=== PATIENT | male | born 1990 | race Caucasian/White ===

== ENCOUNTER 2023-12-08 16:35 | Inpatient (IN) ==
[2023-12-08] MEDS ORDERED: LORazepam 2 MG/1 ML VIAL IV PRN ×2 (17:25→18:43)
[2023-12-08] MEDS ORDERED: Ativan IV Alcohol Withdrawal--Active Protocol IV PRN (17:25)
--- NOTE | 2023-12-08 17:34 | Emergency Department Note ---
Impression & Plan Alcohol intoxication, Alcohol withdrawal syndrome ED Provider Note NAME: CHERELLE FLORES AGE: 33 SEX: M : 1990 ARRIVES VIA: Walk-In INFORMANT: Patient, Friend at bedside, triage report ED PROVIDER(S): Neto Torres MD CHIEF COMPLAINT: Alcohol withdrawal/intoxication MEDICAL DECISION MAKING: Patient presents due to concern for alcohol rehab request. Given the patient's significant alcohol use do not believe the patient would be a good candidate for immediate placement in rehab. IV was established and blood work was obtained. Alcohol withdrawal protocol initiated and the patient was ordered IV Valium 10 mg as the patient was tachycardic and had mild tremulousness. Patient was also ordered IV fluids and a banana bag. Patient has a normal white count H&H and platelet count. The patient's kidney function is unremarkable. AST and ALT are unremarkable. Alcohol 471. Patient did have low oxygen saturations after the IV Valium to 8889% but did well on 2 L. Patient was reassessed and was up and ambulatory without issue. I did speak the on-call hospitalist Dr. Moreland and the patient was admitted to the medicine service. Critical Care: I have personally spent 40 minutes of critical care time in direct management of this patient. This includes bedside care, interpretation of diagnostic studies, and testing, discussion with consultants, patient, and family members, and other require inpatient management activities. This 40 minutes is in excess of all separately billable procedures. Discussion w/ other healthcare providers: None Prior /Outside records reviewed: None Differential diagnosis: Alcohol intoxication, toxicologic, infection, hypoglycemia, electrolyte abnormalities, cardiac sources, intracerebral event, neurologic, trauma, as well as other pathologies. Diagnostics, as interpreted by me: ECG: Sinus tachycardia, rate of 122, normal intervals, normal axis no ST elevations, T wave inversion in 3 and aVF. Cardiac monitoring: An order was placed for continuous cardiac monitoring. The monitor shows a rate of 135 with regular rhythm. Patient was placed on pulse oximetry Medical decision rules: None Imaging studies: I informally interpreted the patient's chest x-ray does not show obvious pneumonia or pneumothorax with formal report to follow. HPI: Patient presents due to concern for detox request. The patient states that he was presenting here today as he is wanting to go to detox for alcohol cessation. Patient denies any abdominal pain or nausea vomiting. The patient reports that he has been drinking very heavily the last 2 days he was that he was recently kicked out of his in-laws as he and his are visiting from the [facility]. Due to concerns for his persistent alcohol abuse he was no longer allowed to stay with his 's family. The patient has been in a hotel the last 2 nights. Prior to the more heavier drinking the patient reportedly was drinking anywhere from 4-6 bottles of wine each day for the last 3 months. Patient did get a DUI a year ago. PAST MEDICAL HISTORY: See Below PAST SURGICAL HISTORY: See Below SOCIAL HISTORY: See Below HOME MEDICATIONS: See Below ALLERGIES: See Below VITALS: See Below PHYSICAL EXAMINATION: GENERAL: NAD, non-toxic. EYE EXAM: Normal conjunctiva. PERRL, no anisocoria and EOM's grossly intact w/o pain. OROPHARYNX: Dry mucus membranes, grossly normal dentition. NECK: Trachea midline, no stridor. LUNGS: Clear to auscultation. Normal chest wall mechanics. HEART: Tachycardic and regular, no MRG. ABDOMEN: Abdomen soft, non-tender, no masses, no rebound or guarding. BACK: No CVA TTP. SKIN: No rashes and no bruising. UPPER EXTREMITIES: Upper extremities are grossly normal. Tremulousness. LOWER EXTREMITIES: Grossly normal, no edema. NEURO EXAM: Awake and alert, slightly slurred speech moves all 4 extremities. Past Med/Surg History Problem List (Updated 12/08/23 @ 23:44 by Neto Torres MD) Alcohol withdrawal syndrome (Acute) Anxiety and depression Alcohol intoxication (Acute) Alcohol dependence Social History Smoking Status: Current every day smoker Tobacco Type: E-cigarettes / Vaping Hx Alcohol Use: Yes Alcohol type: beer, wine, hard liquor and other Hx Substance Use: No Preferred Language: Singaporean Communication Ability: Effective Bell Staff Required: No Beliefs That Will Affect Care: None Current Living Situation: Homeless Current Living Situation Comment: kicked out of house 2 days ago Feels Safe at Home: Declines to Answer Assistive Devices: None Allergies Allergies Allergy/AdvReac Type Severity Reaction Status Date / Time No Known Allergies Allergy Mild Unverified 04/03/06 19:40 Home Meds Home Medications Medication Instructions Recorded Confirmed None (Patient States No Home Meds) ##0 06/10/09 Previous Rx's Medication Instructions Recorded Propoxyphene-N/Acetaminophen 1 tab PO Q4HR PRN ##20 06/10/09 (Darvocet-N 100 *) Results & Data (ED) Vital Signs Vital Signs - 24 hr 12/08/23 16:50 12/08/23 17:22 12/08/23 17:31 Temperature 36.5 C 36.8 C Temperature Source Temporal Artery Scan Oral Pulse Rate 131 H 118 H Pulse Rate [Left Apical] 120 H Respiratory Rate 20 22 Respiratory Effort / Characteristics Non-Labored Spontaneous Non-Labored Spontaneous Respiratory Depth Normal Normal Respiratory Pattern Regular Blood Pressure 163/115 H Blood Pressure [Right Arm] 155/111 H Blood Pressure Mean 131 Blood Pressure Mean [Right Arm] 125 Pulse Oximetry 98 94 Oxygen Delivery Method Room Air Oxygen Flow Rate Sepsis Recent Fever Within 48 Hours No Sepsis New/Unexplained Change in Mental Status No Sepsis Action Taken by Nursing No Action Required Oxygen Flow Rate - Titration Pulse Oximetry Post Tiitration 12/08/23 17:39 12/08/23 17:50 12/08/23 17:51 Temperature Temperature Source Pulse Rate 119 H 120 H Pulse Rate [Left Apical] Respiratory Rate 14 23 Respiratory Effort / Characteristics Respiratory Depth Respiratory Pattern Blood Pressure Blood Pressure [Right Arm] Blood Pressure Mean Blood Pressure Mean [Right Arm] Pulse Oximetry 92 87 L 98 Oxygen Delivery Method Room Air Nasal Cannula Nasal Cannula Oxygen Flow Rate 0 2 Sepsis Recent Fever Within 48 Hours Sepsis New/Unexplained Change in Mental Status Sepsis Action Taken by Nursing Oxygen Flow Rate - Titration 2 Pulse Oximetry Post Tiitration 98 12/08/23 17:57 12/08/23 18:00 12/08/23 18:09 Temperature Temperature Source Pulse Rate 120 H 122 H Pulse Rate [Left Apical] Respiratory Rate 24 16 Respiratory Effort / Characteristics Respiratory Depth Respiratory Pattern Blood Pressure 145/110 H Blood Pressure [Right Arm] Blood Pressure Mean 124 Blood Pressure Mean [Right Arm] Pulse Oximetry 98 98 Oxygen Delivery Method Nasal Cannula Nasal Cannula Oxygen Flow Rate 2 2 Sepsis Recent Fever Within 48 Hours Sepsis New/Unexplained Change in Mental Status Sepsis Action Taken by Nursing Oxygen Flow Rate - Titration Pulse Oximetry Post Tiitration 12/08/23 18:27 12/08/23 18:30 12/08/23 18:54 Temperature Temperature Source Pulse Rate 120 H 125 H Pulse Rate [Left Apical] Respiratory Rate 23 14 Respiratory Effort / Characteristics Respiratory Depth Respiratory Pattern Blood Pressure 147/92 H Blood Pressure [Right Arm] Blood Pressure Mean 112 Blood Pressure Mean [Right Arm] Pulse Oximetry Oxygen Delivery Method Oxygen Flow Rate Sepsis Recent Fever Within 48 Hours Sepsis New/Unexplained Change in Mental Status Sepsis Action Taken by Nursing Oxygen Flow Rate - Titration Pulse Oximetry Post Tiitration Home Medications Current Medication List: was personally reviewed by me Laboratory Data Attestation: I reviewed the patient's lab results. 12/08/23 17:05 12/08/23 17:05 Lab Results 12/08/23 Range/Units 17:05 WBC 7.22 (4.8-10.8) K/ul RBC 5.13 (4.70-6.10) M/uL Hgb 16.6 (14.0-18.0) g/dl Hct 47.1 (42.0-52.0) % MCV 91.8 (80.0-100.0) fL MCH 32.4 (25.0-34.0) pg MCHC 35.2 (32.0-36.0) g/dL RDW Std Deviation 43.6 (36.4-46.3) fL RDW Coeff of Yonis 13.0 (11.5-14.5) % Plt Count 271 (130-400) K/uL MPV 8.3 L (9.4-12.4) fL Immature Gran % (Auto) 0.3 % Neut % (Auto) 57.1 % Lymph % (Auto) 34.1 % [place] % (Auto) 7.5 % Eos % (Auto) 0.3 % Baso % (Auto) 0.7 % Neut # (Auto) 4.13 (1.40-6.50) K/uL Lymph # (Auto) 2.46 (1.20-3.40) K/uL [place] # (Auto) 0.54 (0.11-0.59) K/uL Eos # (Auto) 0.02 (0.00-0.50) K/uL Baso # (Auto) 0.05 (0.00-0.20) K/uL Immature Gran # (Auto) 0.02 (0.01-0.20) K/uL Sodium 143 (136-145) mmol/L Potassium 3.9 (3.5-5.1) mmol/L Chloride 100 (98-107) mmol/L Carbon Dioxide 25 (21-32) mmol/L Anion Gap 18 H (3-11) BUN 10 (6-23) mg/dl Creatinine 0.95 (0.6-1.4) mg/dl Est Cr Clr Drug Dosing 120.5 ml/min Est GFR ( Amer) 121.4 ml/min Est GFR (Non-Af Amer) 104.8 ml/min BUN/Creatinine Ratio 10.5 (10-20) Glucose 126 H (70-99(Fasting)) mg/dl Calcium 9.5 (8.6-10.3) mg/dl Total Bilirubin 0.4 (0.2-1.0) mg/dl Direct Bilirubin 0.1 (0-0.2) mg/dl AST 103 H (13-39) U/L ALT 75 H (7-52) U/L Alkaline Phosphatase 79 (34-104) U/L Total Protein 8.6 H (6.0-8.3) gm/dl Albumin 5.3 H (3.4-5.0) gm/dl Ethyl Alcohol mg/dL 471.9 H (<10.0) mg/dl Administered Medications Chlordiazepoxide HCl (Chlordiazepoxide Hcl 25 Mg Cap) 50 mg PO Q6H MARIYA Stop: 12/09/23 11:31 Last Admin: 12/08/23 22:53 Dose: 50 mg Documented By: Admin: 12/08/23 17:38 Dose: 50 mg Documented By: MARGI Clonidine HCl (Clonidine Hcl 0.1 Mg Tab) 0.1 mg PO BID MARIYA Stop: 01/07/24 20:59 Last Admin: 12/08/23 21:28 Dose: Not Given Documented By: SADIQ Lactated Ringer's (Lr) 1,000 mls @ 125 mls/hr IV .Q8H MARIYA Stop: 01/07/24 18:44 Last Admin: 12/08/23 20:03 Dose: 125 mls/hr Documented By: MARGI Lorazepam (Lorazepam 2 Mg/1 Ml Vial) 2 mg IV UD PRN; Protocol PRN Reason: EtOH Withdrawal AWSS Score 8,9 Stop: 01/07/24 17:24 Last Admin: 12/08/23 22:55 Dose: 2 mg Documented By: Admin: 12/08/23 21:25 Dose: 2 mg Documented By: SADIQ Discontinued Medications Chlordiazepoxide HCl (Chlordiazepoxide Alcohol Withdrawl 50mg) 1 each PO NOW STA; Protocol Stop: 12/08/23 17:26 Last Admin: 12/08/23 18:37 Dose: Not Given Documented By: MARGI Clonidine HCl (Clonidine Hcl 0.1 Mg Tab) 0.1 mg PO NOW ONE Stop: 12/08/23 18:43 Last Admin: 12/08/23 20:34 Dose: 0.1 mg Documented By: MARGI Diazepam (Diazepam 5 Mg/Ml 10ml Vial) 10 mg IV NOW STA Stop: 12/08/23 17:26 Last Admin: 12/08/23 17:37 Dose: 10 mg Documented By: MARGI Multivitamins 10 ml/ Thiamine HCl 100 mg/ Folic Acid 1 mg/Sodium Chloride 1,011.2 mls @ 500 mls/hr IV .Q2H2M ONE Stop: 12/08/23 19:26 Last Infusion: 12/08/23 21:27 Dose: Infused Documented By: Admin: 12/08/23 19:23 Dose: 500 mls/hr Documented By: MARGI Sodium Chloride (Nss) 1,000 mls @ 999 mls/hr IV .Q1H1M ONE Stop: 12/08/23 18:25 Last Infusion: 12/08/23 19:15 Dose: Infused Documented By: Admin: 12/08/23 17:44 Dose: 999 mls/hr Documented By: MARGI Lactated Ringer's (Lr) 500 mls @ 999 mls/hr IV .Q31M ONE Stop: 12/08/23 19:12 Last Infusion: 12/08/23 21:27 Dose: Infused Documented By: Admin: 12/08/23 19:23 Dose: 999 mls/hr Documented By: MARGI Thiamine HCl 300 mg/ Sodium (Chloride) 53 mls @ 210 mls/hr IV ONE ONE Stop: 12/08/23 19:15 Last Infusion: 12/08/23 21:27 Dose: Infused Documented By: Admin: 12/08/23 19:23 Dose: 210 mls/hr Documented By: MARGI Imaging Data Radiologist's Impression: Chest X-Ray 12/08/23 16:54 XR chest 1V portable CLINICAL HISTORY: detox COMPARISON STUDY: No previous studies for comparison. FINDINGS: Lung volumes are normal. Lungs are clear. There is no pneumothorax or pleural effusion. Cardiac size is normal. Mediastinal contours are normal. There is no evidence for pulmonary edema. IMPRESSION: No acute cardiopulmonary findings. ACT 112: Negative or not required by law. Electronically signed by: Giuseppe Marquez M.D. 12/08/2023 5:34 PM Discharge Plan Visit Data Chief Complaint: Detox Request Stated Complaint: ALC INTOX, GOES THROUGH WITHDRAWL, DETOX REQ ED Provider: Neto Torres Discharge Problem: Alcohol intoxication, Alcohol withdrawal syndrome Patient Disposition: Admitted As Inpatient Discharge Instructions Interventions: ED Discharge Assessment Last Done: 12/08/23 20:53 Discharge Problem: Alcohol intoxication Qualifiers: Complication of substance-induced condition: uncomplicated Qualified Code(s): F 10.920 - Alcohol use, unspecified with intoxication, uncomplicated Alcohol withdrawal syndrome Qualifiers: Complication of substance-induced condition: uncomplicated Qualified Code(s): F 10.930 - Alcohol use, unspecified with withdrawal, uncomplicated
[2023-12-08] MEDS: diazePAM 5 MG/ML 10ML VIAL IV STA (17:37)
[2023-12-08] MEDS: chlordiazePOXIDE HCl 25 MG CAP PO SCH (17:38)
[2023-12-08 17:39] LABS: Basophils # (auto) 0.05 K/uL (0.00-0.20); Basophils % (auto) 0.7 %; Eosinophils # (auto) 0.02 K/uL (0.00-0.50); Eosinophils % (auto) 0.3 %; Hematocrit (blood only) 47.1 % (42.0-52.0); Hemoglobin 16.6 g/dl (14.0-18.0); Immature Granulocytes # (auto) 0.02 K/uL (0.01-0.20); Immature Granulocytes % (auto) 0.3 %; Lymphocytes # (auto) 2.46 K/uL (1.20-3.40); Lymphocytes % (auto) 34.1 %; Mean Corpuscular Hemoglobin 32.4 pg (25.0-34.0); Mean Corpuscular Hgb Conc 35.2 g/dL (32.0-36.0); Mean Corpuscular Volume 91.8 fL (80.0-100.0); Mean Platelet Volume 8.3 fL (9.4-12.4); Monocytes # (auto) 0.54 K/uL (0.11-0.59); Monocytes % (auto) 7.5 %; Neutrophils # (auto) 4.13 K/uL (1.40-6.50); Neutrophils % (auto) 57.1 %; Platelet Count 271 K/uL (130-400); RDW Standard Deviation 43.6 fL (36.4-46.3); Red Blood Count 5.13 M/uL (4.70-6.10); White Blood Count 7.22 K/ul (4.8-10.8)
[2023-12-08] MEDS: SODIUM CHLORIDE 0.9% 1,000 ML IV ONE (17:44)
[2023-12-08 18:01] LABS: Albumin Level 5.3 gm/dl (3.4-5.0); BUN Creatinine Ratio 10.5 (10-20); Bilirubin Direct 0.1 mg/dl (0-0.2); Bilirubin,Total 0.4 mg/dl (0.2-1.0); Calcium 9.5 mg/dl (8.6-10.3); Creatinine Clr Calc Pharmacy 120.5 ml/min; Est GFR (African American) 121.4 ml/min; Est GFR (Non-African American) 104.8 ml/min; Potassium 3.9 mmol/L (3.5-5.1); Total Protein 8.6 gm/dl (6.0-8.3)
--- NOTE | 2023-12-08 18:23 | History & Physical Report ---
Date of Service December 08, 2023 Assessment & Plan (1) Alcohol dependence: Plan: Acute alcohol dependence, withdrawal risk Patient seen in the ER with alcohol level of 471.9. Tremulous, tachycardic and recommended for admission for high risk alcohol withdrawal Patient is very tearful on exam, anxious, and notes that he has been kicked out of his home by his . Does want to go back to rehab. He is volume contracted on exam with dry mucous membranes Do not feel that he is in acute withdrawal at this time with an alcohol level of 471.9 and last drink at noon 12/07. Does appear with acute alcohol intoxication, volume contraction, tremulousness. Patient was given 10 mg of Valium started on DARIA S protocol with Librium prior to admission. On admitting assessment patient reports Librium taper has worked well for patient in the past. Will continue this Patient reports he was last sober for 3 days last week when he was trying to self taper his alcohol use for his but was unsuccessful in doing so. He did feel tremulous and anxious at that time. Reports that he may have had a seizure in September but is never had a diagnosed seizure and no seizure that was ever treated Will admit to medical telemetry on seizure precautions with ativan PRN for seizure Psychiatry consulted. Patient acknowledges underlying anxiety/depression which lead him to drink and while he has not been on any medications in several months would like to meet with a psychiatrist to review this S/p banana bag. Thiamine ordered. Folic acid and thiamine continued Continue IV FM. Mild transaminitis suspect acute alcoholic hepatitis. Trended. If uptrend ing, obtain right upper quadrant ultrasound. No right upper quadrant tenderness on exam. Denies history of recreational drug use/IV drug use Takes clonidine 0.2 mg at bedtime for cravings. Likely with some clonidine withdrawal and at risk of rebound hypertension. This is continued at 0.1 mg twice daily (2) Alcohol intoxication: (3) Anxiety and depression: Plan: no longer takes any medications other than clonidine in the evening to help with alcohol cravings Patient would like to talk to someone about underlying anxietydepression with his alcohol use. Would like to review options with psychiatry during admission, consulted Reports multiple stressors including his leaving him at home. Reports he is not spiritual, but would consider meeting a trust manager assistant and would like to think about this and will decide in the morning. May reduce in the morning and consult drugless doctor if desired by patient Plan Prophylaxis: Low risk, SCDs Disposition: Medical/telemetry CODE STATUS: Full code Diet: Clears. May advance to regular if awake and alert. History of Present Illness Primary Care Provider: NO PCP Inderjit is a 33-year-old male with a history of alcohol dependence and abuse. He presented to the ER tremulous and tachycardic with an alcohol level of 471.9. Patient has been drinking around 6 bottles of wine daily recently, and had been drinking around 4 bottles of wine a day for several months prior to presentation to the ER. Presents with a detox request and would like to proceed to rehab. He does have a transaminitis of 103/75 on admission. Patient was given 10 mg of Valium, banana bag, 1 L NSS, and started on Clure diazepam oxide and AWSS protocol prior to admission. Due to severe tremulousness, tachycardia, poor clinical appearance with high risk for alcohol withdrawal was recommended for admission and treatment of alcohol dependence prior to progression to rehab. "IM an alcoholic, I drink too much and I can't stop" Drinking daily for ~10 years. Drinks ~20 drinks ago. Mixture of a fifth of liquor, bottles of wine, and beer. Up to 4 bottles of wine normally , an da little more lately Last week Friday --> attempted to detox himself. Relapsed. Is on clonidine 0.2 HS I sno longer on seroquel, wellbutrin, or trazodone. Has not taken in many months. Reports he has a past history of alcohol withdrawal seizures, but did not see a doctor for this. Thinks he may have had a seizure last in September but isn't sure, remembers waking up with a locked jaw and felt terrible but has never been diagnosed with a seizure. First rehab 2021 in [place], 2022 also went to rehab in [place] [facility], and went through [facility] and then back to rehab this past late 2022 in [place] and was there for a few months. Primary doctor is Dr. Casanova with [facility]. Denies medical problems other than ETOH abuse. Had a cyst excision from his scalp removed, otherwise denies surgeries. Has done well with libruim for withdrawal in the past Last drink of alcohol was noon today. No heart problems. Medical History: Reviewed Medications: Reviewed Surgical History: Reviewed Family history: Reviewed Allergies: Reviewed. NKMA. Social History: Vapes nicotine. Would like patch. No recreational drug use Code Status: Full Code. Surrogate decision maker would be his mother [phone] Mavis. Allergies Allergy/AdvReac Type Severity Reaction Status Date / Time No Known Allergies Allergy Mild Unverified 04/03/06 19:40 Home Medications Medication Instructions Recorded Confirmed Type None (Patient States No Home Meds) ##0 06/10/09 History Propoxyphene-N/Acetaminophen 1 tab PO Q4HR PRN ##20 06/10/09 Rx (Darvocet-N 100 *) Past Med/Surg History Problem List (Updated 12/08/23 @ 18:48 by Param Moreland MD) Anxiety and depression Alcohol intoxication Alcohol dependence Social History Smoking Status: Unknown if ever smoked Feels Safe at Home: Yes Physical Exam Physical Exam: General: Tearful, tremulous, tachycardic, skin warm and moist HEENT: Atraumatic, normocephalic. Pupils equally reactive to light and accommodation Pulm: CTAB A&P. -wheezes, -rales, -rhonchi. Symmetrical chest rise. No increased work of breathing. No respiratory distress. Cardiac: Regular, tachycardic. No murmurs rubs or gallop. Radial pulses intact and symmetrical. Abdominal: Nontender, nondistended, soft. BS present. Extremities: Bilateral upper extremity tremor during exam. Field Administrative Assistant strength, elbow flexion, ankle dorsiflexion/plantarflexion 5/5 without asymmetry. Sensation to soft touch intact in hands and feet Results & Data Results & Data Vital Signs (Past 12 Hours) Vital Signs Temp Pulse Pulse Resp BP BP Pulse Ox 12/08/23 17:51 120 H 23 98 12/08/23 17:50 87 L 12/08/23 17:39 119 H 14 92 12/08/23 17:31 118 H 12/08/23 17:22 36.8 C 120 H 22 155/111 H 94 12/08/23 16:50 36.5 C 131 H 20 163/115 H 98 O2 Del Method O2 Flow Rate 12/08/23 17:51 Nasal Cannula 2 12/08/23 17:50 Nasal Cannula 0 09/30/24 17:39 Room Air 12/08/23 17:31 12/08/23 17:22 Room Air 12/08/23 16:50 PG Care Time/CCT Total # of Minutes Spent Total Time Spent with Patient: Total time spent is greater than 50% in coordination of care (as documented) at patient's floor/unit and/or counseling patient: Coding Level of Care Code 13332 INT INP/OBS CARE 3/75MIN Diagnoses Alcohol dependence F10.20 Alcohol intoxication F10.929 Anxiety and depression F41.9; F32.A
[2023-12-08] MEDS: chlordiazePOXIDE ALCOHOL WITHDRAWL 50MG PO STA (18:37)
[2023-12-08] MEDS: THIAMINE HCL 300 MG in SODIUM CHLORIDE 0.9% 50 ML IV ONE (19:23)
[2023-12-08] MEDS: MULTI-VITAMIN INFUSION 10 ML, THIAMINE HCL 100 MG, FOLIC ACID 1 MG in SODIUM CHLORIDE 0... IV ONE (19:23)
[2023-12-08] MEDS: LACTATED RINGER'S 500 ML IV ONE (19:23)
[2023-12-08] MEDS: LACTATED RINGER'S 1,000 ML IV SCH (20:03)
[2023-12-08] MEDS: cloNIDine HCL 0.1 MG TAB PO ONE (20:34)
[2023-12-08] MEDS: LORazepam 2 MG/1 ML VIAL IV PRN (21:25)
[2023-12-08] MEDS: cloNIDine HCL 0.1 MG TAB PO SCH (21:28)
[2023-12-09 06:56] LABS: Albumin Globulin Ratio 1.7 (0.9-2); Albumin Level 3.7 gm/dl (3.4-5.0); BUN Creatinine Ratio 12.7 (10-20); Bilirubin,Total 0.5 mg/dl (0.2-1.0); Calcium 8.2 mg/dl (8.6-10.3); Est GFR (African American) 136.7 ml/min; Globulin 2.2 gm/dl (2.5-4.0); Potassium 3.6 mmol/L (3.5-5.1); Total Protein 5.9 gm/dl (6.0-8.3)
[2023-12-09 06:58] LABS: Basophils # (auto) 0.03 K/uL (0.00-0.20); Basophils % (auto) 0.8 %; Eosinophils # (auto) 0.07 K/uL (0.00-0.50); Eosinophils % (auto) 1.9 %; Hematocrit (blood only) 35.6 % (42.0-52.0); Hemoglobin 12.4 g/dl (14.0-18.0); Immature Granulocytes # (auto) 0.01 K/uL (0.01-0.20); Immature Granulocytes % (auto) 0.3 %; Lymphocytes % (auto) 40.5 %; Mean Corpuscular Hemoglobin 32.1 pg (25.0-34.0); Mean Corpuscular Hgb Conc 34.8 g/dL (32.0-36.0); Mean Corpuscular Volume 92.2 fL (80.0-100.0); Mean Platelet Volume 8.4 fL (9.4-12.4); Monocytes # (auto) 0.66 K/uL (0.11-0.59); Monocytes % (auto) 17.8 %; Neutrophils # (auto) 1.43 K/uL (1.40-6.50); Neutrophils % (auto) 38.7 %; Platelet Count 143 K/uL (130-400); RDW Coefficient of Variation 12.8 % (11.5-14.5); RDW Standard Deviation 43.1 fL (36.4-46.3); Red Blood Count 3.86 M/uL (4.70-6.10)
[2023-12-09] MEDS: POTASSIUM CHLORIDE CRTAB 20 MEQ TABCR PO SCH (10:17)
[2023-12-09] MEDS: THIAMINE HCL 100 MG TAB PO SCH (10:18)
[2023-12-09] MEDS: FOLIC ACID 1 MG TAB PO SCH (10:18)
[2023-12-09] MEDS: CEROVITE ADV FORMULA TAB PO SCH (10:18)
--- NOTE | 2023-12-09 10:47 | Hospitalist Progress Note ---
Date of Service December 09, 2023 Assessment & Plan (1) Alcohol dependence with withdrawal: (2) Abnormal liver enzymes: Plan Alcohol level is 471.9 on admission Continue Librium and taper starting tomorrow [facility] alcohol withdrawal protocol with Ativan as needed Thiamine plus folic acid plus multivitamin Case management consult: Patient is interested in inpatient alcohol rehab Psychiatry consult: Awaiting psychiatry consult and recommendations LFTs are slowly improving Monitor LFTs Check ultrasound abdomen to assess for any liver cirrhosis Alcohol cessation counseling provided Care plan discussed with patient, nursing staff Admission and Anticipated Discharge Date Admission Date: December 08, 2023 Subjective Patient seen and examined H&P reviewed Labs reviewed Radiology reviewed Patient states he feels very weak and tired Denies any nausea, vomiting, diarrhea, abdominal pain He is tearful about the situation He admits to drinking 2-3 bottles of wine every day. Patient states he tried to stop drinking few days ago and started feeling withdrawal symptoms and went back to drinking alcohol again. His has asked him to leave home He denies tobacco use or any illegal or IV drug use Review of Systems Review of Systems: As per HPI Physical Exam Physical Exam: General: No acute distress Psych: Awake and alert, oriented to place person and time HEENT: Anicteric sclera, moist oral mucosa, no tongue fasciculations noted CVS: Regular rate and rhythm Lungs: Bilateral air entry, no wheezing noted Abdomen: Soft, nontender, no rebound, no guarding Ext: No lower extremity edema, no calf tenderness Neuro: No focal motor deficits noted Results & Data Results & Data Vital Signs (Past 12 Hours) Vital Signs Temp Pulse Resp BP Pulse Ox O2 Del Method 12/09/23 08:10 37.4 C 94 H 20 149/74 H 95 Room Air 12/09/23 03:55 36.5 C 89 16 127/70 95 Room Air 12/08/23 23:10 36.4 C L 114 H 20 138/81 95 Room Air Laboratory Results Laboratory Results - last 24 hr 12/08/23 12/09/23 17:05 05:55 WBC 7.22 3.70 L RBC 5.13 3.86 L Hgb 16.6 12.4 L D Hct 47.1 35.6 L MCV 91.8 92.2 MCH 32.4 32.1 MCHC 35.2 34.8 RDW Std Deviation 43.6 43.1 RDW Coeff of Yonis 13.0 12.8 Plt Count 271 143 MPV 8.3 L 8.4 L Immature Gran % (Auto) 0.3 0.3 Neut % (Auto) 57.1 38.7 Lymph % (Auto) 34.1 40.5 [place] % (Auto) 7.5 17.8 Eos % (Auto) 0.3 1.9 Baso % (Auto) 0.7 0.8 Neut # (Auto) 4.13 1.43 Lymph # (Auto) 2.46 1.50 [place] # (Auto) 0.54 0.66 H Eos # (Auto) 0.02 0.07 Baso # (Auto) 0.05 0.03 Immature Gran # (Auto) 0.02 0.01 Sodium 143 142 Potassium 3.9 3.6 Chloride 100 106 Carbon Dioxide 25 27 Anion Gap 18 H 9 BUN 10 10 Creatinine 0.95 0.79 Est Cr Clr Drug Dosing 120.5 146.0 Est GFR ( Amer) 121.4 136.7 Est GFR (Non-Af Amer) 104.8 118.0 BUN/Creatinine Ratio 10.5 12.7 Glucose 126 H 108 H Calcium 9.5 8.2 L Total Bilirubin 0.4 0.5 Direct Bilirubin 0.1 AST 103 H 75 H ALT 75 H 52 Alkaline Phosphatase 79 55 Total Protein 8.6 H 5.9 L D Albumin 5.3 H 3.7 Globulin 2.2 L Albumin/Globulin Ratio 1.7 Ethyl Alcohol mg/dL 471.9 H Diagnostic Findings Chest X-Ray 12/08/23 16:54 XR chest 1V portable CLINICAL HISTORY: detox COMPARISON STUDY: No previous studies for comparison. FINDINGS: Lung volumes are normal. Lungs are clear. There is no pneumothorax or pleural effusion. Cardiac size is normal. Mediastinal contours are normal. There is no evidence for pulmonary edema. IMPRESSION: No acute cardiopulmonary findings. ACT 112: Negative or not required by law. Electronically signed by: Giuseppe Marquez M.D. 12/08/2023 5:34 PM PG Care Time/CCT Total # of Minutes Spent Total Time Spent with Patient: Total time spent is greater than 50% in coordination of care (as documented) at patient's floor/unit and/or counseling patient: Coding Level of Care Code 58806 SUB INP/OBS CARE 2/35MIN Diagnoses Alcohol dependence with withdrawal F10.239 Abnormal liver enzymes R74.8
--- NOTE | 2023-12-09 10:51 | Electrocardiogram Report ---
Test Reason : Blood Pressure : */* mmHG Vent. Rate : 122 BPM Atrial Rate : 122 BPM P-R Int : 136 ms QRS Dur : 90 ms QT Int : 326 ms P-R-T Axes : -26 -10 -37 degrees QTcB Int : 464 ms Sinus tachycardia Nonspecific T wave abnormality Abnormal ECG No previous ECGs available Confirmed by Adam Ferguson ([id number]) on 12/09/2023 10:51:27 AM Referred By: REFERRED SELF Confirmed By: Adam Ferguson
--- NOTE | 2023-12-09 13:07 | Psychiatric Consultation ---
Date of Consultation December 09, 2023 Impression / Recommendations Impression Inderjit is a 33 yo with a history of depression, anxiety and alcohol use admitted medically. Diagnostically consistent with alcohol use disorder as well as unspecified depression anxiety likely a combination of substance-induced as well as MDD vs adjustment disorder with depressed mood and CHAPIN and social anxiety. Acute risk of self-harm is low given denial of SI, no longer with intoxication, motivated to avoid future substance use, future-oriented. Chronic risk of self-harm and harm to others is slightly increased due to substance use with substance use treatment being the most significant modifiable risk factor to reduce acute and chronic risk. Recommendation is for residential substance use treatment. Liver enzymes reviewed and stable for treatment with naltrexone and no concurrent opioids. Overall, I spent a total of 60 minutes with this case including review of chart records, review of labwork, review of EKG QTc, direct evaluation of the patient at bedside, counseling the patient, discussion of the patient with the Nurse and with the hospitalist provider, discussion with the psychiatric liason during clinical rounds and documentation in the electronic health record. (1) Alcohol use disorder: (2) Depression: (3) Anxiety: Plan -Patient is not an imminent danger to self or others and does not meet criteria for involuntary psychiatric commitment if he asked to leave AMA -Continue AWSS as well as thiamine and folic acid -Consider gabapentin 300mg HS for alcohol withdrawal, and off-label to help with sleep and anxiety (can titrate further to 600mg HS over coming days if needed); alternatively if ineffective could consider use of trazodone 50mg HS (can titrate up to 100mg HS as needed for insomnia) -Would start naltrexone 50mg daily with dinner for alcohol use disorder -Would avoid SSRI/SNRI given his report of prior significant side effects from escitalopram (? induced episode of natty vs psychosis). Could consider use of Wellbutrin after he is outside of acute withdrawal period (contraindicated now as this lowers the seizure threshold) as he reports this was helpful in the past and did not worsen anxiety. -CM to work on residential substance use treatment referrals -Psych liasons to offer support and can help connect with outpatient psychiatric/substance use resources if he ends up deciding not to attend residential substance use treatment Psych History Identifying Data 33 yo man with a history of anxiety, depression, alcohol use, past GI bleed d/t alcohol use, admitted medically for alcohol withdrawal. Psychiatry consulted for anxiety, depression, substance use recommendations. Chief Complaint "I have so much anxiety". History of Present Illness Inderjit was admitted for alcohol withdrawal after relapsing at a constitution party with his longtime girlfriend and her family. He states his girlfriend kicked him out the family's home and he walked to the hospital. He reports sadness and anxiety due to his girlfriend breaking up with him because of his frequent relapses and alcohol use. States he had been drinking 14-18 drinks per day but over the last week was attempting to stop and was withdrawing when he starting drinking again on . Today reports ongoing anxiety and depression. He denies any suicidal ideation. He feels his current emotional state is affected by the breakup as they had been together for the last 14 years. He feels depressed and has low self-esteem, which he believes contributes to his drinking. He expresses feeling conflicted about the relationship ending, stating that he still loves his ex-girlfriend despite recognizing the unhealthy dynamics. He describes feeling frustrated and upset about the circumstances of their breakup, including being kicked out and having to walk in the rain. 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 Feels that some of his drinking may have also been due to his girlfriend's infidelity at times. He has a history of depression and anxiety and has previously been on Lexapro, which he reports made him feel like a "zombie" and that after stopping it at a previous residential facility caused him to have a "psychotic break". He recalls Wellbutrin was the only psychiatric medication that he ever found helpful. History of being on Adderall in the past.Denies any prior suicide attempts. No prior psych hospitalizations. Has been to residential tx 3 times for alcohol use. History of substance use IOP. History of outpatient therapy. Longest period of sobriety was 5 months. Has been drinking heavily since 21. History of DUI. History of medical issues including GI bleed from alcohol use. Has been prescribed naltrexone but never took it due to concerns it could cause nausea. He is willing to undergo treatment and is considering residential treatment or outpatient treatment in [place] where his parents live. Rates his motivation to stop drinking as 9/10 and that he feels very confident he can stop drinking if he commits to this. 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 Operator Required: No Beliefs That Will Affect Care: None Current Living Situation: Homeless Current Living Situation Comment: kicked out of house 2 days ago Feels Safe at Home: Declines to Answer Assistive Devices: None Physical Exam Psychiatric: Orientation: alert and oriented x 3 Apperance: appropriately dressed and appropriately groomed Eye Contact: good eye contact Motor Behavior: no abnormal motor movements Speech: normal rate/rhythm/volume of speech Affect: + anxious affect and + tearful affect Mood: + depressed mood and + anxious mood Thought Process: goal directed thought process Thought Content: reality based without delusions Suicidal Thoughts: denies suicidal thoughts Homicidal Thoughts: denies homicidal thoughts Hallucinations: no auditory hallucinations and no visual hallucinations Cognition: attention grossly intact and language grossly intact Estimated Intelligence: consistent with education level Insight: + fair insight Judgment: + limited judgement Vital Signs (Past 24 Hours): Last Vital Signs Temp 36.9 C 12/09/23 11:11 Pulse 75 12/09/23 11:11 Resp 18 12/09/23 11:11 BP 143/91 H 12/09/23 11:11 Pulse Ox 95 12/09/23 11:11 O2 Del Method Room Air 12/09/23 11:11 O2 Flow Rate 2 12/08/23 18:09 Results & Data (PSY) Medications Administered Clonidine HCl (Clonidine Hcl 0.1 Mg Tab) 0.1 mg PO BID MARIYA Stop: 01/07/24 20:59 Last Admin: 12/09/23 10:17 Dose: 0.1 mg Documented By: Admin: 12/08/23 21:28 Dose: Not Given Documented By: SADIQ Folic Acid (Folic Acid 1 Mg Tab) 1 mg PO QAM COUNTS INCLUDE 234 BEDS AT THE [facility] Stop: 01/08/24 08:59 Last Admin: 12/09/23 10:18 Dose: 1 mg Documented By: MELITON Lactated Ringer's (Lr) 1,000 mls @ 125 mls/hr IV .Q8H MARIYA Stop: 01/07/24 18:44 Last Admin: 12/09/23 07:57 Dose: 125 mls/hr Documented By: Infusion: 12/09/23 07:48 Dose: Infused Documented By: Admin: 12/08/23 23:48 Dose: 125 mls/hr Documented By: Infusion: 12/08/23 23:48 Dose: Infused Documented By: Admin: 12/08/23 20:03 Dose: 125 mls/hr Documented By: [facility] Lorazepam (Lorazepam 2 Mg/1 Ml Vial) 2 mg IV UD PRN; Protocol PRN Reason: EtOH Withdrawal AWSS Score 8,9 Stop: 01/07/24 17:24 Last Admin: 12/09/23 08:15 Dose: 2 mg Documented By: Admin: 12/08/23 22:55 Dose: 2 mg Documented By: Admin: 12/08/23 21:25 Dose: 2 mg Documented By: SADIQ Multivitamins/Minerals (Cerovite Adv Formula Tab) 1 tab PO QAM COUNTS INCLUDE 234 BEDS AT THE [facility] Stop: 01/08/24 08:59 Last Admin: 12/09/23 10:18 Dose: 1 tab Documented By: MELITON Potassium Chloride (Potassium Chloride Crtab 20 Meq Tabcr) 20 meq PO BID MARIYA Stop: 12/09/23 21:01 Last Admin: 12/09/23 10:17 Dose: 20 meq Documented By: MELITON Thiamine HCl (Thiamine Hcl 100 Mg Tab) 100 mg PO QAM COUNTS INCLUDE 234 BEDS AT THE [facility] Stop: 01/08/24 08:59 Last Admin: 12/09/23 10:18 Dose: 100 mg Documented By: MELITON Coding Level of Care Code 73695 IN/OBS CONSULT LVL 4,60M Diagnoses Alcohol use disorder F10.90 Depression F32.A Anxiety F41.9
[2023-12-09] MEDS: NALTREXONE HCL 50 MG TAB PO SCH (17:42)
[2023-12-09] MEDS ORDERED: chlordiazePOXIDE HCl 25 MG CAP PO SCH (19:30)
[2023-12-09] MEDS: GABAPENTIN 300 MG CAP PO SCH (20:03)
[2023-12-09] MEDS: chlordiazePOXIDE HCl 25 MG CAP PO SCH (20:04)
[2023-12-09] MEDS: IBUPROFEN 200 MG/10 ML UDC PO STA (20:26)
--- NOTE | 2023-12-10 05:33 | Ultrasound Report ---
Exam(s): US LIVER EXAM: US Abdomen Limited CLINICAL HISTORY: Abnormal liver enzymes. TECHNIQUE: Real-time ultrasound of the abdomen with image documentation. COMPARISON: No relevant prior studies available. FINDINGS: Liver: The liver measures 19.7 cm. There is increased echogenicity of the liver. No mass. Common bile duct: The common bile duct is normal measuring 0.6 cm. Pancreas: The pancreatic head and body are within normal limits. The tail is not visualized due to overlying bowel gas. Kidneys: The right kidney is unremarkable as visualized. IMPRESSION: Hepatomegaly with fatty infiltration of the liver. Electronically signed by: Yris Root MD 12/10/23 05:32 AM
[2023-12-10 06:18] LABS: Basophils # (auto) 0.02 K/uL (0.00-0.20); Basophils % (auto) 0.5 %; Eosinophils % (auto) 2.6 %; Hematocrit (blood only) 36.3 % (42.0-52.0); Hemoglobin 12.8 g/dl (14.0-18.0); Immature Granulocytes # (auto) 0.01 K/uL (0.01-0.20); Immature Granulocytes % (auto) 0.3 %; Lymphocytes # (auto) 1.22 K/uL (1.20-3.40); Lymphocytes % (auto) 31.2 %; Mean Corpuscular Hemoglobin 32.1 pg (25.0-34.0); Mean Corpuscular Hgb Conc 35.3 g/dL (32.0-36.0); Mean Platelet Volume 8.5 fL (9.4-12.4); Monocytes # (auto) 0.53 K/uL (0.11-0.59); Monocytes % (auto) 13.6 %; Neutrophils # (auto) 2.03 K/uL (1.40-6.50); Neutrophils % (auto) 51.8 %; Platelet Count 121 K/uL (130-400); RDW Coefficient of Variation 12.5 % (11.5-14.5); RDW Standard Deviation 41.3 fL (36.4-46.3); Red Blood Count 3.99 M/uL (4.70-6.10); White Blood Count 3.91 K/ul (4.8-10.8)
[2023-12-10 06:33] LABS: Albumin Globulin Ratio 1.8 (0.9-2); Albumin Level 3.9 gm/dl (3.4-5.0); BUN Creatinine Ratio 7.9 (10-20); Bilirubin,Total 0.9 mg/dl (0.2-1.0); Calcium 8.9 mg/dl (8.6-10.3); Creatinine Clr Calc Pharmacy 153.6 ml/min; Est GFR (African American) 138.9 ml/min; Est GFR (Non-African American) 119.9 ml/min; Globulin 2.2 gm/dl (2.5-4.0); Magnesium 1.7 mg/dl (1.7-2.4); Potassium 3.8 mmol/L (3.5-5.1); Total Protein 6.1 gm/dl (6.0-8.3)
[2023-12-10 07:25] LABS: Estimated Average Glucose 117 mg/dl; Hemoglobin A1C 5.7 % (4.5-5.6)
[2023-12-10] MEDS: THIAMINE HCL 100 MG TAB PO SCH (09:27)
--- NOTE | 2023-12-10 12:06 | Hospitalist Progress Note ---
Date of Service December 10, 2023 Assessment & Plan (1) Alcohol dependence with withdrawal: Plan: cont librium taper cont AWSS protocol with symptom-triggered ativan to be used prn cont MVI cont folic acid increase thiamine to 200mg BID cont clonidine BID cont gabapentin HS appreciate psych consultation naltrexone 50mg daily started during this hospitalization patient still very committed to going to inpatient alcohol rehab in [place] if patient is stable overnight and if he has little to no etoh withdrawal symptoms/signs tomorrow he likely can be discharged then (2) Abnormal liver enzymes: Plan: ALT was high upon admission - now normal AST high upon admission - improving elevated LFTs 2nd to etoh abuse AST should continue to improve/normalize (3) Anxiety and depression: Plan: patient has taken wellbutrin in the past with good results consider resuming such upon admission to etoh rehab (4) Alcohol intoxication: Plan: etoh level of >450 upon admission (5) Pancytopenia: Plan: likely 2nd to etoh abuse counts should recover over the next week b12 level wnl patient is on folic acid supplementation checked COVID swab in light of pancytopenia and reports of chills - COVID test negative (6) Chills: Plan: likely 2nd to etoh withdrawal doubt infection, but checked COVID swab to be complete -- returned negative (7) Tobacco dependence: Plan: nicoderm patch 21mg/day Plan poor appetite - add back IV fluids H2 alexandrea IV x 1 now, then PPI once daily starting tomorrow appetite should improve as etoh withdrawal resolves Admission and Anticipated Discharge Date Admission Date: December 08, 2023 Subjective patient requests nicoderm patch he vapes about the equivalent of 1 pack of cigarettes/day he feels shaky he is anxious he is feeling all sorts of emotions and is tearful he talks about his and how she left him here in [place] he talks about his [id number] he feels that she gets in the way of his relationship with his 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 [place] and then move to a new city he was tearful talking about this because now this likely won't happen still willing to go to etoh inpatient rehab in [place] told him they have a bed for him Review of Systems Review of Systems: gen - having chills but no fever; poor appetite cv - no chest pain pulm - no dyspnea, no cough GI - mild nausea, no abd pain Physical Exam Physical Exam: gen - tearful, anxious, depressed neuro - mild tremors mouth - MMM heart - RRR, s1 s2, no murmur lungs - CTA b/l abd - soft NT ND BS+ ext - no edema, pulses 2+ b/l psych - a/o x 3 Results & Data Results & Data Vital Signs (Past 12 Hours) Vital Signs Temp Pulse Pulse Resp BP Pulse Ox O2 Del Method 12/10/23 11:46 56 L 12/10/23 11:11 36.6 C 63 18 151/98 H 95 Room Air 12/10/23 07:00 36.4 C L 48 L 18 156/98 H 97 Room Air 12/10/23 03:17 36.3 C L 48 L 18 146/88 H 97 Room Air Laboratory Results Laboratory Results - last 24 hr 12/10/23 12/10/23 12/10/23 05:57 12:35 Unknown WBC 3.91 L RBC 3.99 L Hgb 12.8 L Hct 36.3 L MCV 91.0 MCH 32.1 MCHC 35.3 RDW Std Deviation 41.3 RDW Coeff of Yonis 12.5 Plt Count 121 L MPV 8.5 L Immature Gran % (Auto) 0.3 Neut % (Auto) 51.8 Lymph % (Auto) 31.2 [place] % (Auto) 13.6 Eos % (Auto) 2.6 Baso % (Auto) 0.5 Neut # (Auto) 2.03 Lymph # (Auto) 1.22 [place] # (Auto) 0.53 Eos # (Auto) 0.10 Baso # (Auto) 0.02 Immature Gran # (Auto) 0.01 Sodium 140 Potassium 3.8 Chloride 107 Carbon Dioxide 25 Anion Gap 8 BUN 6 Creatinine 0.76 Est Cr Clr Drug Dosing 153.6 Est GFR ( Amer) 138.9 Est GFR (Non-Af Amer) 119.9 BUN/Creatinine Ratio 7.9 L Glucose 95 Estimat Average Glucose 117 Hemoglobin A1c 5.7 H Calcium 8.9 Magnesium 1.7 Total Bilirubin 0.9 AST 61 H ALT 48 Alkaline Phosphatase 55 Total Protein 6.1 Albumin 3.9 Globulin 2.2 L Albumin/Globulin Ratio 1.8 Vitamin B12 634 SARS-CoV-2 (PCR) NEGATIVE SARS-CoV-2 RNA (RT-PCR) Cancelled PG Care Time/CCT Total # of Minutes Spent Total Time Spent with Patient: Total time spent is greater than 50% in coordination of care (as documented) at patient's floor/unit and/or counseling patient: Coding Level of Care Code 32534 SUB INP/OBS CARE 3/50MIN Diagnoses Alcohol dependence with withdrawal F10.239 Abnormal liver enzymes R74.8 Anxiety and depression F41.9; F32.A Alcohol intoxication F10.920 Complication of substance-induced condition: uncomplicated Pancytopenia D61.818 Chills R68.83 Tobacco dependence F17.200 (4) Alcohol intoxication Complication of substance-induced condition: uncomplicated Qualified Code(s): F10.920 - Alcohol use, unspecified with intoxication, uncomplicated
[2023-12-10] MEDS: FAMOTIDINE 20MG IV PUSH 20 MG/5 ML SYR IV STA (12:27)
[2023-12-10] MEDS: D5W AND 1/2NSS + 20MEQ KCL 20 MEQ/1,000 ML BAG IV SCH (12:28)
[2023-12-10] MEDS: NICOTINE 21 MG/24 HR TDSY TD SCH (14:16)
[2023-12-10] MEDS: LORazepam 2 MG/1 ML VIAL IV PRN (15:15)
[2023-12-10] MEDS ORDERED: chlordiazePOXIDE HCl 25 MG CAP PO SCH (19:30)
[2023-12-10] MEDS: IBUPROFEN 200 MG/10 ML UDC PO STA (21:18)
[2023-12-10] MEDS: diphenhydrAMINE Capsule 25 MG CAP PO ONE (21:35)
[2023-12-11 08:06] LABS: Basophils # (auto) 0.02 K/uL (0.00-0.20); Basophils % (auto) 0.5 %; Eosinophils # (auto) 0.12 K/uL (0.00-0.50); Eosinophils % (auto) 3.1 %; Hematocrit (blood only) 39.3 % (42.0-52.0); Hemoglobin 13.1 g/dl (14.0-18.0); Immature Granulocytes # (auto) 0.01 K/uL (0.01-0.20); Immature Granulocytes % (auto) 0.3 %; Lymphocytes # (auto) 1.22 K/uL (1.20-3.40); Lymphocytes % (auto) 31.4 %; Mean Corpuscular Hemoglobin 31.8 pg (25.0-34.0); Mean Corpuscular Hgb Conc 33.3 g/dL (32.0-36.0); Mean Corpuscular Volume 95.4 fL (80.0-100.0); Mean Platelet Volume 8.8 fL (9.4-12.4); Monocytes # (auto) 0.47 K/uL (0.11-0.59); Monocytes % (auto) 12.1 %; Neutrophils # (auto) 2.05 K/uL (1.40-6.50); Neutrophils % (auto) 52.6 %; Platelet Count 129 K/uL (130-400); RDW Coefficient of Variation 12.9 % (11.5-14.5); RDW Standard Deviation 45.1 fL (36.4-46.3); Red Blood Count 4.12 M/uL (4.70-6.10); White Blood Count 3.89 K/ul (4.8-10.8)
[2023-12-11 08:08] LABS: BUN Creatinine Ratio 4.9 (10-20); Calcium 9.3 mg/dl (8.6-10.3); Creatinine Clr Calc Pharmacy 142.5 ml/min; Potassium 3.7 mmol/L (3.5-5.1)
[2023-12-11] MEDS: PANTOprazole 40 MG TAB PO SCH (08:24)
--- NOTE | 2023-12-11 18:47 | Hospitalist Progress Note ---
Date of Service December 11, 2023 Assessment & Plan (1) Alcohol dependence with withdrawal: Plan: cont librium taper cont AWSS protocol with symptom-triggered ativan to be used prn cont MVI cont folic acid increase thiamine to 200mg BID cont clonidine BID cont gabapentin HS appreciate psych consultation naltrexone 50mg daily started during this hospitalization patient still very committed to going to inpatient alcohol rehab in [place] Plan to continue benzo taper. if patient is stable overnight and if he has little to no etoh withdrawal symptoms/signs tomorrow he likely can be discharged on 12/11 (2) Abnormal liver enzymes: Plan: ALT was high upon admission - now normal AST high upon admission - improving elevated LFTs 2nd to etoh abuse AST should continue to improve/normalize (3) Anxiety and depression: Plan: patient has taken wellbutrin in the past with good results consider resuming such upon admission to etoh rehab (4) Alcohol intoxication: Plan: etoh level of >450 upon admission (5) Pancytopenia: Plan: likely 2nd to etoh abuse counts should recover over the next week b12 level wnl patient is on folic acid supplementation checked COVID swab in light of pancytopenia and reports of chills - COVID test negative (6) Chills: Plan: likely 2nd to etoh withdrawal doubt infection, but checked COVID swab to be complete -- returned negative (7) Tobacco dependence: Plan: nicoderm patch 21mg/day Plan poor appetite - add back IV fluids H2 alexandrea IV x 1 now, then PPI once daily starting tomorrow appetite should improve as etoh withdrawal resolves Admission and Anticipated Discharge Date Admission Date: December 08, 2023 Subjective 33 yo male reports no new symptoms Review of Systems Review of Systems: All systems reviewed & are unremarkable except as noted in HPI & below Physical Exam Physical Exam: gen - Symptoms appear controlled neuro - No tremors mouth - MMM heart - RRR, s1 s2, no murmur lungs - CTA b/l abd - soft NT ND BS+ ext - no edema, pulses 2+ b/l psych - a/o x 3 Results & Data Results & Data Vital Signs (Past 12 Hours) Vital Signs Temp Pulse Pulse Resp BP Pulse Ox O2 Del Method 12/11/23 15:49 36.5 C 55 L 16 127/83 96 Room Air 12/11/23 12:06 36.8 C 56 L 16 129/84 97 Room Air 12/11/23 09:09 44 L 12/11/23 07:57 36.5 C 58 L 16 153/107 H 98 Room Air PG Care Time/CCT Total # of Minutes Spent Total Time Spent with Patient: Total time spent is greater than 50% in coordination of care (as documented) at patient's floor/unit and/or counseling patient: Coding Level of Care Code 39913 SUB INP/OBS CARE 2/35MIN Diagnoses Alcohol dependence with withdrawal F10.239 Abnormal liver enzymes R74.8 Anxiety and depression F41.9; F32.A Alcohol intoxication F10.920 Complication of substance-induced condition: uncomplicated Pancytopenia D61.818 Chills R68.83 Tobacco dependence F17.200 (4) Alcohol intoxication Complication of substance-induced condition: uncomplicated Qualified Code(s): F10.920 - Alcohol use, unspecified with intoxication, uncomplicated
[2023-12-11] MEDS: chlordiazePOXIDE HCl 25 MG CAP PO SCH (20:24)
[2023-12-11 23:34] VITALS: RESP 18
[2023-12-12 03:50] VITALS: O2SAT 99
[2023-12-12 07:38] VITALS: TEMP 97.3
--- NOTE | 2023-12-12 11:16 | Discharge Summary ---
Discharge Summary Date of Service December 12, 2023 Principal Dx & Hospital Course #1 = Principal Diagnosis (1) Alcohol dependence with withdrawal: cont librium taper cont AWSS protocol with symptom-triggered ativan to be used prn cont MVI cont folic acid increase thiamine to 200mg BID cont clonidine BID cont gabapentin HS appreciate psych consultation naltrexone 50mg daily started during this hospitalization patient still very committed to going to inpatient alcohol rehab in [place] Patient completed benzo taper. iPatient discharged on 12/11 (2) Abnormal liver enzymes: ALT was high upon admission - now normal AST high upon admission - improving elevated LFTs 2nd to etoh abuse AST should continue to improve/normalize (3) Anxiety and depression: patient has taken wellbutrin in the past with good results consider resuming such upon admission to etoh rehab (4) Alcohol intoxication: etoh level of >450 upon admission (5) Pancytopenia: likely 2nd to etoh abuse counts should recover over the next week b12 level wnl patient is on folic acid supplementation checked COVID swab in light of pancytopenia and reports of chills - COVID test negative (6) Chills: likely 2nd to etoh withdrawal doubt infection, but checked COVID swab to be complete -- returned negative (7) Tobacco dependence: nicoderm patch 21mg/day Plan poor appetite - add back IV fluids H2 alexandrea IV x 1 now, then PPI once daily starting tomorrow appetite should improve as etoh withdrawal resolves Admission HPI Per Admitting Provider Inderjit is a 33-year-old male with a history of alcohol dependence and abuse. He presented to the ER tremulous and tachycardic with an alcohol level of 471.9. Patient has been drinking around 6 bottles of wine daily recently, and had been drinking around 4 bottles of wine a day for several months prior to presentation to the ER. Presents with a detox request and would like to proceed to rehab. He does have a transaminitis of 103/75 on admission. Patient was given 10 mg of Valium, banana bag, 1 L NSS, and started on Clure diazepam oxide and AWSS protocol prior to admission. Due to severe tremulousness, tachycardia, poor clinical appearance with high risk for alcohol withdrawal was recommended for admission and treatment of alcohol dependence prior to progression to rehab. "IM an alcoholic, I drink too much and I can't stop" Drinking daily for ~10 years. Drinks ~20 drinks ago. Mixture of a fifth of liquor, bottles of wine, and beer. Up to 4 bottles of wine normally , an da little more lately Last week Friday --> attempted to detox himself. Relapsed. Is on clonidine 0.2 HS I sno longer on seroquel, wellbutrin, or trazodone. Has not taken in many months. Reports he has a past history of alcohol withdrawal seizures, but did not see a doctor for this. Thinks he may have had a seizure last in September but isn't sure, remembers waking up with a locked jaw and felt terrible but has never been diagnosed with a seizure. First rehab 2021 in [place], 2022 also went to rehab in [facility], and went through [facility] and then back to rehab this past late 2022 in [place] and was there for a few months. Primary doctor is Dr. Casanova with [facility]. Denies medical problems other than ETOH abuse. Had a cyst excision from his scalp removed, otherwise denies surgeries. Has done well with libruim for withdrawal in the past Last drink of alcohol was noon today. No heart problems. Medical History: Reviewed Medications: Reviewed Surgical History: Reviewed Family history: Reviewed Allergies: Reviewed. NKMA. Social History: Vapes nicotine. Would like patch. No recreational drug use Code Status: Full Code. Surrogate decision maker would be his mother [phone] Mavis. Discharge Exam gen - Symptoms appear controlled neuro - No tremors mouth - MMM heart - RRR, s1 s2, no murmur lungs - CTA b/l abd - soft NT ND BS+ ext - no edema, pulses 2+ b/l psych - a/o x 3 Discharge Plan Discharge Items Patient Disposition: Transfer Inpatient Rehab Fac Reason For Visit: ETOH WITHDRAWAL, INTOX, REHAB REQUEST Discharge Diagnosis: etoh withdrawal Activity: Resume your previous activity Non-emergency contact: Primary Care Provider Call non-emergency contact if: you have any medication questions Follow-up/Referrals: Alexa Siegel MD [Primary Care Provider] - Diet: Heart Healthy Addtl Attending Provider Instructions: recommend followup with your PCP in 1-2 weeks. Pending Studies at Discharge: No Stand-Alone Forms: My [facility] Skilled Items Patient informed of condition?: Yes DNR: No Discharge Level of Care: Skilled Communicable Disease: No Discharge Prognosis: Stable Lines: None Urinary Catheter: No Medications and DC Order Prescriptions: New thiamine HCl (vitamin B1) 100 mg Tablet 100 mg PO DAILY Qty: 30 0RF nicotine [Nicoderm CQ] 21 mg/24 hr Patch 24 Hour 1 patch transdermal QAM Qty: 28 0RF folic acid 1 mg Tablet 1 mg PO QAM Qty: 30 0RF Cerovite Senior 0.4 mg-300 mcg- 250 mcg Tablet 1 tab PO QAM Qty: 30 0RF Continued clonidine HCl 0.1 mg tablet 0.1 mg PO BID propranolol 20 mg tablet 20 mg PO BID PRN (Reason: Before Anxiety Provoking Event) Discharge Orders: Discharge Order (Routine); Ordered 12/12/23 Ordered By: Lacho Putnam Admission Data Admit Date/Time: 12/08/23 19:03 Attending Provider: Lacho Putnam Admit Provider: Param Moreland Primary Care Provider: Alexa Siegel Other Providers: Param Moreland; Cara Mazariegos; Yung Zimmerman; Juvenal Jaimes Jr; Pat Elias; Gissel Kearns; Rakan Malik Other Interventions: Discharge Summary Assessment (RN) Last Done: 12/12/23 11:42 Hospital Stay Data Consultations 12/08/23 18:18 ED Decision to Admit Stat 12/08/23 18:43 Consult Psychiatry Routine Diagnostic Imagining Performed 12/09/23 16:36 US abdomen [US liver] Urgent Discharge Instructions Given to Patient (Per Discharging Provider) recommend followup with your PCP in 1-2 weeks. Total Time Total Time Spent Total Time Spent (In Minutes): 32 Coding Level of Care Code 29654 INP/OBS DISCH >30 MIN Diagnoses Alcohol dependence with withdrawal F10.239 Abnormal liver enzymes R74.8 Anxiety and depression F41.9; F32.A Alcohol intoxication F10.920 Complication of substance-induced condition: uncomplicated Pancytopenia D61.818 Chills R68.83 Tobacco dependence F17.200
[2023-12-12 11:45] VITALS: BP 159/119; PULSE 49
== END 2023-12-12 12:25 | DRG 897 ==
LOC: ED 16:35 → 2E 19:03 → SUATTDRO 19:03 → 2E 20:53 → 2W 12-10 17:38 → 2N 12-11 17:49
DX: Z59.00 Homelessness unspecified; D61.818 Other pancytopenia; Z11.52 Encounter for screening for COVID-19; F41.9 Anxiety disorder, unspecified; F32.A Depression, unspecified; R74.8 Abnormal levels of other serum enzymes; F10.239 Alcohol dependence with withdrawal, unspecified; F17.210 Nicotine dependence, cigarettes, uncomplicated; F10.229 Alcohol dependence with intoxication, unspecified; Y90.8 Blood alcohol level of 240 mg/100 ml or more

== ENCOUNTER 2024-12-08 05:48 | Inpatient (IN) ==
--- NOTE | 2024-12-08 06:28 | Emergency Department Note ---
Impression & Plan Alcohol intoxication, Alcohol dependence, Alcohol withdrawal ED Provider Note NAME: CHERELLE FLORES AGE: 34 SEX: M : 1990 ARRIVES VIA: Walk-In INFORMANT: Patient, ED PROVIDER(S): Vijay Grey DO CHIEF COMPLAINT: Requesting detox HPI: The patient is a 34-year-old male who presented to the emergency department for an evaluation. The patient states that he has been drinking alcohol daily. He has a history of this in the past. The patient states that he is requesting detox. He is requesting inpatient help. The patient denies having any suicidal homicidal ideation. The patient states he has a history of DTs in the past. Currently the patient is denying any IV drug abuse. He states he does use some [id number]-[id number] medications that are THC derivatives. ROS: See above HPI for pertinent positives & negatives. A total of 10 systems reviewed and were otherwise negative. PAST MEDICAL HISTORY: See Below PAST SURGICAL HISTORY: See Below FAMILY HISTORY: See Below SOCIAL HISTORY: See Below HOME MEDICATIONS: See Below ALLERGIES: See Below VITALS: See Below PHYSICAL EXAMINATION: GENERAL: The patient is awake. He follows commands well. The patient is tearful. EYES: The conjunctivae are clear. The pupils are round and reactive. EARS, NOSE, MOUTH AND THROAT: The nose is without any evidence of any deformity. NECK: The neck is nontender and supple. RESPIRATORY: Normal respiratory effort is noted there is no evidence of wheezing rhonchi or rales CARDIOVASCULAR: Tachycardic but regular heart sounds were noted to auscultation. There is no definite murmur. GASTROINTESTINAL: The abdomen is soft. Abdomen is nontender. MUSCULOSKELETAL/EXTREMITIES: There is no evidence of gross deformity full range of motion is noted in the hips and shoulders. SKIN: There is no obvious evidence of any rash. There are no petechiae, pallor or cyanosis noted. NEUROLOGIC: Patient is awake alert and oriented x3 strength is symmetric patellar reflexes are 2+ bilaterally PSYCH: The patient makes poor eye contact mostly evaluation. Currently the patient is denying any suicidal homicidal ideation. MEDICAL DECISION MAKING: The patient is a 34-year-old male who presented to the emergency department for an evaluation of alcohol abuse. The patient felt as though he was having signs of withdrawal and wanted to be evaluated. The patient was treated with IV fluids as well as thiamine emergency department. He was given a dose of Ativan. I discussed the patient's laboratory results with him. Ultimately the patient feels as though he would still like to go through detox but he does not want rehab. He is requesting inpatient treatment for this. I discussed his condition with the on-call [facility] hospitalist. They have agreed to evaluate the patient in the emergency department for further management and disposition. Triage Nursing notes reviewed. Prior medical records reviewed Vital Signs: reviewed and remarkable for no significant abnormalities Differential diagnosis: Alcohol intoxication, toxicologic, infection, hypoglycemia, electrolyte abnormalities, cardiac sources, intracerebral event, neurologic, trauma, as well as other pathologies. ER treatment provided: See below Diagnostics interpreted by me: ECG: EKG was obtained in the emergency department. My interpretation is sinus tachycardia at 102 bpm. There is no ectopy. There is no acute ST segment abnormalities noted. QTc was 453 ms. This was compared to a tracing from November 17, 2023. No changes were noted. Cardiac Monitoring: An order was placed for continuous cardiac monitoring. The monitor shows a rate of 81 bpm with sinus rhythm. Laboratory studies: As stated above and show below. Imaging studies: See below. Radiographic imaging was reviewed by myself Consultation(s): I discussed this case with Natasha who is on for the [facility]ist group. Past Med/Surg History Problem List (Updated 12/08/24 @ 13:48 by Vijay Grey DO) Alcohol withdrawal (Acute) Alcohol intoxication (Acute) Polysubstance abuse Tobacco dependence Chills Elevated AST (SGOT) Pancytopenia Abnormal liver enzymes Alcohol dependence with withdrawal Anxiety Depression Alcohol use disorder Alcohol withdrawal syndrome (Acute) Anxiety and depression Alcohol intoxication (Acute) Alcohol dependence (Acute) Social History Smoking Status: Never smoker Tobacco Type: E-cigarettes / Vaping Hx Alcohol Use: Yes Alcohol type: beer, wine, hard liquor and other Hx Substance Use: No Preferred Language: Latvian Communication Ability: Effective Etiologist Required: No Beliefs That Will Affect Care: None Current Living Situation: Homeless Current Living Situation Comment: kicked out of house 2 days ago Feels Safe at Home: Yes Assistive Devices: None Allergies Allergies Allergy/AdvReac Type Severity Reaction Status Date / Time No Known Allergies Allergy Mild Unverified 12/10/23 09:30 Home Meds Home Medications Medication Instructions Recorded Confirmed gabapentin 600 mg tablet 600 mg PO TID 12/08/24 12/08/24 venlafaxine 37.5 mg tablet 37.5 mg PO BID 12/08/24 12/08/24 Results & Data (ED) Vital Signs Vital Signs - 24 hr 12/08/24 05:52 12/08/24 06:09 12/08/24 06:17 Temperature 36.6 C Temperature Source Temporal Artery Scan Pulse Rate 106 H 96 H Pulse Rate [Apical] 94 H Pulse Rhythm Regular Pulse Rhythm [Apical] Regular Pulse Strength Normal Pulse Strength [Apical] Normal Respiratory Rate 18 20 Respiratory Effort / Characteristics Non-Labored Spontaneous Non-Labored Spontaneous Respiratory Depth Normal Normal Respiratory Pattern Regular Regular Blood Pressure 148/96 H Blood Pressure [Right Arm] 144/97 H Blood Pressure Mean 113 Blood Pressure Mean [Right Arm] 112 Blood Pressure Position Sitting Blood Pressure Position [Right Arm] Lying Pulse Oximetry 96 92 Oxygen Delivery Method Room Air Room Air Oxygen Flow Rate Sepsis Recent Fever Within 48 Hours No Sepsis New/Unexplained Change in Mental Status N/A Sepsis Action Taken by Nursing No Action Required 12/08/24 06:17 12/08/24 07:27 12/08/24 09:00 Temperature Temperature Source Pulse Rate 92 H Pulse Rate [Apical] 82 65 Pulse Rhythm Regular Pulse Rhythm [Apical] Pulse Strength Pulse Strength [Apical] Respiratory Rate 20 22 14 Respiratory Effort / Characteristics Non-Labored Spontaneous Respiratory Depth Normal Respiratory Pattern Blood Pressure Blood Pressure [Right Arm] 131/82 109/79 Blood Pressure Mean Blood Pressure Mean [Right Arm] 98 89 Blood Pressure Position Blood Pressure Position [Right Arm] Lying Pulse Oximetry 97 96 98 Oxygen Delivery Method Room Air Nasal Cannula Room Air Oxygen Flow Rate 2 Sepsis Recent Fever Within 48 Hours Sepsis New/Unexplained Change in Mental Status Sepsis Action Taken by Nursing 12/08/24 10:14 12/08/24 11:33 12/08/24 13:00 Temperature Temperature Source Pulse Rate 76 Pulse Rate [Apical] 87 81 Pulse Rhythm Pulse Rhythm [Apical] Pulse Strength Pulse Strength [Apical] Respiratory Rate 17 16 Respiratory Effort / Characteristics Non-Labored Spontaneous Respiratory Depth Normal Respiratory Pattern Blood Pressure Blood Pressure [Right Arm] 126/90 127/83 Blood Pressure Mean Blood Pressure Mean [Right Arm] 102 97 Blood Pressure Position Blood Pressure Position [Right Arm] Sitting Semi-fowlers Pulse Oximetry 97 99 Oxygen Delivery Method Room Air Room Air Oxygen Flow Rate Sepsis Recent Fever Within 48 Hours Sepsis New/Unexplained Change in Mental Status Sepsis Action Taken by Prison Medications Current Medication List: was personally reviewed by me Laboratory Data Attestation: I reviewed the patient's lab results. 12/08/24 06:08 12/08/24 06:08 Lab Results 12/08/24 12/08/24 Range/Units 06:08 06:35 WBC 9.58 (4.8-10.8) K/ul RBC 5.07 (4.70-6.10) M/uL Hgb 16.1 (14.0-18.0) g/dl Hct 45.8 (42.0-52.0) % MCV 90.3 (80.0-100.0) fL MCH 31.8 (25.0-34.0) pg MCHC 35.2 (32.0-36.0) g/dL RDW Std Deviation 40.2 (36.4-46.3) fL RDW Coeff of Yonis 12.2 (11.5-14.5) % Plt Count 368 (130-400) K/uL MPV 8.5 L (9.4-12.4) fL Immature Gran % (Auto) 0.2 % Neut % (Auto) 36.7 % Lymph % (Auto) 54.7 % Boyle % (Auto) 6.9 % Eos % (Auto) 1.0 % Baso % (Auto) 0.5 % Neut # (Auto) 3.51 (1.40-6.50) K/uL Lymph # (Auto) 5.24 H (1.20-3.40) K/uL Boyle # (Auto) 0.66 H (0.11-0.59) K/uL Eos # (Auto) 0.10 (0.00-0.50) K/uL Baso # (Auto) 0.05 (0.00-0.20) K/uL Immature Gran # (Auto) 0.02 (0.01-0.20) K/uL RBC Morphology Unremarkable PT 9.8 (9.0-12.0) Seconds INR 0.9 (0.9-1.1) APTT 26 (21-31) Seconds PTT Ratio 1.0 Sodium 144 (136-145) mmol/L Potassium 4.0 (3.5-5.1) mmol/L Chloride 101 (98-107) mmol/L Carbon Dioxide 30 (21-32) mmol/L Anion Gap 13 H (3-11) BUN 13 (6-23) mg/dl Creatinine 0.99 (0.6-1.4) mg/dl Est Cr Clr Drug Dosing 117.8 ml/min eGFR 102.51 BUN/Creatinine Ratio 13.1 (10-20) Glucose 130 H (70-99(Fasting)) mg/dl Calcium 9.3 (8.6-10.3) mg/dl Magnesium 2.2 (1.7-2.4) mg/dl Total Bilirubin 0.5 (0.2-1.0) mg/dl AST 34 (13-39) U/L ALT 22 (7-52) U/L Alkaline Phosphatase 93 (34-104) U/L Total Creatine Kinase 341 H (30-223) U/L Troponin I High Sens 3.0 (0-20) pg/ml Total Protein 8.0 (6.0-8.3) gm/dl Albumin 5.1 H (3.4-5.0) gm/dl Globulin 2.9 (2.5-4.0) gm/dl Albumin/Globulin Ratio 1.8 (0.9-2) Lipase 67 (11-82) U/L Urine Color Yellow Urine Appearance Clear (Clear) Urine pH 6.0 (4.5-7.5) Ur Specific [place] >= 1.030 (1.000-1.030) Urine Protein 2+ H (Negative) Urine Glucose (UA) Negative (Negative) Urine Ketones Negative (Negative) Urine Blood Trace-intact H (Negative) Urine Nitrite Negative (Negative) Urine Bilirubin Negative (Negative) Urine Urobilinogen Negative (Negative) Ur Leukocyte Esterase Negative (Negative) Urine RBC 3-5 H (0-2) /hpf Urine WBC 0-5 (0-5) /hpf Ur Epithelial Cells 0-2 (0-2) /hpf Urine Bacteria None Seen (None Seen) Urine Mucus Present A (None Prsent) Urine Comment Salicylates < 3.0 L (3.0-30) mg/dl Urine Opiates Screen Neg (Neg) Ur Methadone, Qual Neg (Neg) Urine Fentanyl Screen Neg (Neg) Acetaminophen < 3 L (10-30) ug/ml Urine Barbiturates Neg (Neg) Ur Phencyclidine (PCP) Neg (Neg) U Amphetamin/Meth Scrn Neg (Neg) MDMA (Ecstasy) Screen Neg (Neg) U Benzodiazepines Scrn Neg (Neg) Ur Cocaine Metabolite Neg (Neg) U Marijuana (THC) Screen Neg (Neg) Ethyl Alcohol mg/dL 292.3 H (<10.0) mg/dl Administered Medications Sodium Chloride (Nss) 1,000 mls @ 999 mls/hr IV .Q1H1M ONE Stop: 12/08/24 14:07 Last Admin: 12/08/24 13:18 Dose: 999 mls/hr Documented By: medardo Discontinued Medications Sodium Chloride (Nss) 1,000 mls @ 999 mls/hr IV .Q1H1M MARIYA Stop: 12/08/24 07:15 Last Infusion: 12/08/24 11:41 Dose: Infused Documented By: Admin: 12/08/24 06:35 Dose: 999 mls/hr Documented By: BRYCE Thiamine HCl 200 mg/ Sodium (Chloride) 52 mls @ 210 mls/hr IV NOW STA Stop: 12/08/24 06:27 Last Infusion: 12/08/24 07:06 Dose: Infused Documented By: Admin: 12/08/24 06:42 Dose: 210 mls/hr Documented By: BRYCE Lorazepam (Lorazepam 1 Mg/1 Ml Syr Ed Inj Use) 1 mg IM ONE STA Stop: 12/08/24 11:54 Last Admin: 12/08/24 12:03 Dose: 1 mg Documented By: medardo Ondansetron HCl (Ondansetron Inj 2 Mg/Ml 2 Ml Vial) 4 mg IV NOW STA Stop: 12/08/24 06:14 Last Admin: 12/08/24 06:34 Dose: 4 mg Documented By: BRYCE Discharge Plan Visit Data Chief Complaint: Alcohol Withdrawal Stated Complaint: Alcohol Withdrawal WANTS HELP ED Provider: Vijay Grey Discharge Problem: Alcohol intoxication, Alcohol dependence, Alcohol withdrawal Patient Disposition: Being Evaluated by Hospitalist Condition: Fair Forms Stand Alone Forms: [facility], Suicide Prevention Resources Prescriptions Prescriptions: No Action gabapentin 600 mg tablet 600 mg PO TID venlafaxine 37.5 mg tablet 37.5 mg PO BID Referrals Referrals: PCP,NO [Primary Care Provider] -
[2024-12-08 06:30] LABS: Hematocrit (blood only) 45.8 % (42.0-52.0); Hemoglobin 16.1 g/dl (14.0-18.0); Mean Corpuscular Hemoglobin 31.8 pg (25.0-34.0); Mean Corpuscular Volume 90.3 fL (80.0-100.0); Platelet Count 368 K/uL (130-400); RDW Standard Deviation 40.2 fL (36.4-46.3); Red Blood Count 5.07 M/uL (4.70-6.10); White Blood Count 9.58 K/ul (4.8-10.8)
[2024-12-08] MEDS: ONDANSETRON INJ 2 MG/ML 2 ML VIAL IV STA (06:34)
[2024-12-08] MEDS: SODIUM CHLORIDE 0.9% 1,000 ML IV SCH (06:35)
[2024-12-08] MEDS: THIAMINE HCL 200 MG in SODIUM CHLORIDE 0.9% 50 ML IV STA (06:42)
[2024-12-08 06:43] LABS: Acetaminophen < 3 ug/ml (10-30); Salicylate < 3.0 mg/dl (3.0-30)
[2024-12-08 06:52] LABS: Alanine Aminotransferase 22.0 U/L (7-52); Albumin Globulin Ratio 1.8 (0.9-2); Albumin Level 5.1 gm/dl (3.4-5.0); Alkaline Phosphatase 93.0 U/L (34-104); Anion Gap 13.0 (3-11); Bilirubin,Total 0.5 mg/dl (0.2-1.0); Blood Urea Nitrogen 13.0 mg/dl (6-23); Calcium 9.3 mg/dl (8.6-10.3); Carbon Dioxide 30.0 mmol/L (21-32); Chloride 101.0 mmol/L (98-107); Creatine Kinase 341.0 U/L (30-223); Creatinine Clr Calc Pharmacy 117.8 ml/min; Globulin 2.9 gm/dl (2.5-4.0); Glucose 130.0 mg/dl (70-99(Fasting)); Lipase 67.0 U/L (11-82); Magnesium 2.2 mg/dl (1.7-2.4); Potassium 4.0 mmol/L (3.5-5.1); Sodium 144.0 mmol/L (136-145); Total Protein 8.0 gm/dl (6.0-8.3)
[2024-12-08 06:57] LABS: Immature Granulocytes # (auto) 0.02 K/uL (0.01-0.20); Immature Granulocytes % (auto) 0.2 %; RBC Morphology Unremarkable
[2024-12-08 07:04] LABS: INR 0.9 (0.9-1.1); Partial Thromboplastin Time 26 Seconds (21-31); Prothrombin Time 9.8 Seconds (9.0-12.0)
[2024-12-08 07:09] LABS: Appearance Urine Clear (Clear); Glucose Urine UA Negative (Negative)
[2024-12-08 07:20] LABS: Epithelial Cell Urine 0-2 /hpf (0-2)
[2024-12-08 08:13] LABS: Amphetamines+Metham, Urine Neg (Neg); MDMA (Ecstacy), Urine Neg (Neg); Marijuana, Urine Neg (Neg)
[2024-12-08] MEDS: LORazepam 1 MG/1 ML SYR ED Inj Use IM STA (12:03)
--- NOTE | 2024-12-08 12:33 | History & Physical Report ---
"Date of Service December 08, 2024 Assessment & Plan (1) Alcohol use disorder: (2) Alcohol withdrawal syndrome: (3) Polysubstance abuse: (4) Anxiety: (5) Depression: Plan Inderjit is a 34-year-old male with a past medical history of alcohol use disorder, anxiety and depression who presents to the hospital for elective detox. He had a similar admission in 12/2023 in which she attended rehab afterwards and reports was sober for 5 months. Presents with a alcohol level of 292, 2 days after being kicked out of his house. Also reports concomitant use of kratom in 7hydroxy concentrate. Admitted to undergo withdrawal. #ETOH abuse | Alcohol withdrawal - reports drinking 25 drinks a day (mixed drinks and beer), last drink ~ 12/07. Reports psychosis and LFT elevation with phenobarbital in the past. Thiamine and Folate qam Seizure precautions Ativan at risk protocol 1L additional IVF given elevated CK Not actively withdrawing at time of admission Hold home gabapentin - has not been taking as prescribed #Polysubstance abuse - with reported kratom 50g day x 6 months & 7- hydroxy concentrate 100mg TID x 2 months Spoke with poison control - they report similar admission 2.5 months ago at [facility] (reportively LFTs much higher that time). With his OTC substance abuse, may need extra supportive care - react to his symptoms and may need extra ativan. Consider addiction medicine consult - consider opioid replacement therapy IVFs as above recommend cesssation Case with posion control remains open at this time #Anxiety and depression Denies sucicidal and homicidal thoughts on admission Continue venlafaxine Dispo: Admit to PCU DVT proh: lovenox History of Present Illness Primary Care Provider: NO PCP Patient seen lying in the hospital bed. Reports that he presented to the hospital today for detox. His last drink was last evening. Reports that he drinks about 5 drinks a day with a combination between beer and hard alcohol. States that he lost his job 2 days ago and was kicked out from his house. He is willing to go to alcohol rehab would want to talk to his parents first. He had a similar hospitalization a year ago and states he did go to rehab and remained sober for about 5 months. He does report having falls at home but unable to recall details of these falls. Reports that he has not done well with stating he gave him psychosis and elevated liver numbers. He also endorses using kratom 50g day x 6 months & 7- hydroxy concentrate 100mg TID x 2 months, which he purchases from the [email or web address]. He has been taking his gabapentin but states he does not have enough refills so he has been trying to space it out to make it last does report compliance with with his venlafaxine. He denies suicidal thoughts at time of admission ED course: NSS 1 L Zofran 4 mg IV x 1 Thiamine 2000 mg IV x 1 Ativan 1 mg IM x 1 Allergies Allergy/AdvReac Type Severity Reaction Status Date / Time No Known Allergies Allergy Mild Unverified 12/10/23 09:30 Home Medications Medication Instructions Recorded Confirmed Type gabapentin 600 mg tablet 600 mg PO TID 12/08/24 12/08/24 History venlafaxine 37.5 mg tablet 37.5 mg PO BID 12/08/24 12/08/24 History Past Med/Surg History Problem List (Updated 12/08/24 @ 13:48 by Vijay Grey DO) Alcohol withdrawal (Acute) Alcohol intoxication (Acute) Polysubstance abuse Tobacco dependence Chills Elevated AST (SGOT) Pancytopenia Abnormal liver enzymes Alcohol dependence with withdrawal Anxiety Depression Alcohol use disorder Alcohol withdrawal syndrome (Acute) Anxiety and depression Alcohol intoxication (Acute) Alcohol dependence (Acute) Social History Smoking Status: Current every day smoker Tobacco Type: E-cigarettes / Vaping Hx Alcohol Use: Yes Alcohol type: beer and hard liquor Hx Substance Use: Yes Substance Use Type Other:: Blaise Preferred Language: Montenegrin Communication Ability: Effective Aegis Console Operator Track Required: No Beliefs That Will Affect Care: None Current Living Situation: Homeless Current Living Situation Comment: kicked out of house 2 days ago Feels Safe at Home: Declines to Answer Assistive Devices: None Review of Systems Review of Systems: All systems reviewed & are unremarkable except as noted in Subjective Physical Exam Physical Exam: General: NAD, VS as above Resp: normal respiratory effort, lungs clear to auscultation CV: RRR, no murmur, Abd: normal bowel sounds, non tender, no hepatosplenomegaly Extremities: Moves all extremities, no tremor Neuro: A&O x3, Skin: intact, no lesions noted Results & Data Results & Data Vital Signs (Past 12 Hours) Vital Signs Temp Pulse Pulse Resp BP BP Pulse Ox 12/08/24 11:33 87 17 126/90 97 12/08/24 10:14 76 12/08/24 09:00 65 14 109/79 98 12/08/24 07:27 82 22 131/82 96 12/08/24 06:17 92 H 20 97 12/08/24 06:17 94 H 20 144/97 H 92 12/08/24 06:09 96 H 12/08/24 05:52 97.9 F 106 H 18 148/96 H 96 O2 Del Method O2 Flow Rate 12/08/24 11:33 Room Air 12/08/24 10:14 12/08/24 09:00 Room Air 12/08/24 07:27 Nasal Cannula 2 12/08/24 06:17 Room Air 12/08/24 06:17 Room Air 12/08/24 06:09 12/08/24 05:52 Room Air Laboratory Results CBC, chemistry, coagulation studies, CK reviewed Lipase reviewed UA reviewed tox screen reviewed Medical alcohol level reviewed Supervising Physician Co-Signing Physician Notes I personally saw and examined the patient. I independently reviewed the labs, EKG, imaging, problem list, medication list, past medical history and family history. I verified all gonzalez points and agree with Natasha Thakur PA-C with the following exceptions and/or additions: 34 year old male presents to the ER with tremors and concern for alcohol withdrawal. 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 Kratom use - no lacrimation or myalgias consistent with withdrawal from this currently, more likely alcohol withdrawal and would concentrate on benzodiazepines currently but if symptoms persist after going through alcohol withdrawal timeline could consider buprenorphine. Possible he's been through thi s withdrawal previously and was the reason phenobarbital was not successful before. PG Care Time/CCT Total # of Minutes Spent Total Time Spent with Patient: Total time spent is greater than 50% in coordination of care (as documented) at patient's floor/unit and/or counseling patient: Coding Level of Care Code 15271 INT INP/OBS CARE MIN Diagnoses Alcohol use disorder F10.90 Alcohol withdrawal syndrome F10.930 Complication of substance-induced condition: uncomplicated Polysubstance abuse F19.10 Anxiety F41.9 Depression F32.A (2) Alcohol withdrawal syndrome Complication of substance-induced condition: uncomplicated Qualified Code(s): F10.930 - Alcohol use, unspecified with withdrawal, uncomplicated"
[2024-12-08] MEDS: SODIUM CHLORIDE 0.9% 1,000 ML IV ONE (13:18)
[2024-12-08] MEDS ORDERED: POLYETHYLENE (MIRALAX) 17 GM PACK PO PRN (15:22)
[2024-12-08] MEDS ORDERED: LORazepam Inj 3 MG in SYRINGE 1.5 ML IV PRN (17:55)
[2024-12-08] MEDS: LORazepam 1 MG TAB PO PRN (18:03)
--- NOTE | 2024-12-08 19:08 | Electrocardiogram Report ---
Test Reason : Blood Pressure : */* mmHG Vent. Rate : 102 BPM Atrial Rate : 102 BPM P-R Int : 134 ms QRS Dur : 98 ms QT Int : 348 ms P-R-T Axes : 2 43 17 degrees QTcB Int : 453 ms Sinus tachycardia Abnormal ECG Confirmed by Adam Ferguson ([id number]) on 12/08/2024 7:08:34 PM Referred By: Confirmed By: Adam Ferguson
[2024-12-08] MEDS: VENLAFAXINE HCL 37.5 MG TAB PO SCH (21:26)
[2024-12-08] MEDS: LORazepam Inj 2 MG in SYRINGE 1 ML IV PRN (21:36)
[2024-12-09] MEDS: ONDANSETRON INJ 2 MG/ML 2 ML VIAL IV PRN (02:23)
[2024-12-09 06:17] LABS: Hematocrit (blood only) 41.9 % (42.0-52.0); Hemoglobin 14.3 g/dl (14.0-18.0); Immature Granulocytes # (auto) 0.01 K/uL (0.01-0.20); Immature Granulocytes % (auto) 0.2 %; Mean Corpuscular Hemoglobin 30.2 pg (25.0-34.0); Mean Corpuscular Volume 88.6 fL (80.0-100.0); Platelet Count 247 K/uL (130-400); RDW Standard Deviation 38.5 fL (36.4-46.3); Red Blood Count 4.73 M/uL (4.70-6.10); White Blood Count 6.44 K/ul (4.8-10.8)
[2024-12-09 06:46] LABS: Albumin Level 4.6 gm/dl (3.4-5.0); Anion Gap 10.0 (3-11); Bilirubin,Total 1.3 mg/dl (0.2-1.0); Calcium 9.0 mg/dl (8.6-10.3); Carbon Dioxide 24.0 mmol/L (21-32); Chloride 101.0 mmol/L (98-107); Potassium 3.9 mmol/L (3.5-5.1); Sodium 135.0 mmol/L (136-145)
[2024-12-09 06:49] LABS: Alanine Aminotransferase 19.0 U/L (7-52); Albumin Globulin Ratio 1.7 (0.9-2); Alkaline Phosphatase 62.0 U/L (34-104); Blood Urea Nitrogen 14.0 mg/dl (6-23); Creatinine Clr Calc Pharmacy 132.5 ml/min; Globulin 2.7 gm/dl (2.5-4.0); Glucose 93.0 mg/dl (70-99(Fasting)); Total Protein 7.3 gm/dl (6.0-8.3)
[2024-12-09] MEDS: FOLIC ACID 1 MG TAB PO SCH (08:18)
[2024-12-09] MEDS: THIAMINE HCL 100 MG TAB PO SCH (08:18)
[2024-12-09] MEDS: ENOXAPARIN INJ 40 MG/0.4 ML SYR SQ SCH (08:21)
--- NOTE | 2024-12-09 10:03 | Hospitalist Progress Note ---
Date of Service December 09, 2024 Assessment & Plan (1) Alcohol use disorder: (2) Alcohol withdrawal syndrome: (3) Polysubstance abuse: (4) Anxiety: (5) Depression: Plan Inderjit is a 34-year-old male with a past medical history of alcohol use disorder, anxiety and depression who presents to the hospital for elective detox. He had a similar admission in 12/2023 in which she attended rehab afterwards and reports was sober for 5 months. Presents with a alcohol level of 292, 2 days after being kicked out of his house. Also reports concomitant use of kratom in 7hydroxy concentrate. Admitted to undergo withdrawal. #ETOH abuse | Alcohol withdrawal - reports drinking 25 drinks a day (mixed drinks and beer), last drink ~ 2100 12/07. Reports psychosis and LFT elevation with phenobarbital in the past. Given 2L IVFs. Thiamine and Folate qam Seizure precautions Ativan active protocol - dose of seroquel given this morning as pt reporting "feels like my insides are crawling" Hold home gabapentin - has not been taking as prescribed #Polysubstance abuse - with reported kratom 50g day x 6 months & 7- hydroxy concentrate 100mg TID x 2 months Spoke with poison control - they report similar admission 2.5 months ago at [facility] (reportively LFTs much higher that time). Recommendations: With his OTC substance abuse, may need extra supportive care - react to his symptoms and may need extra ativan. Consider addiction medicine consult - consider opioid replacement therapy recommend cessation #Anxiety and depression Denies sucicidal and homicidal thoughts on admission Continue venlafaxine Dispo: continued inpatient stay, actively withdrawing DVT proh: lovenox Admission and Anticipated Discharge Date Admission Date: December 08, 2024 Subjective Patient seen lying in bed, sleeping but awakens to stimuli reports feeling exhausted poor appetite reports feeling cold Review of Systems Review of Systems: All systems reviewed & are unremarkable except as noted in Subjective Physical Exam Physical Exam: General: NAD, VS as above, sleeping, but arousable Resp: normal respiratory effort, lungs clear to auscultation CV: RRR, no murmur, Abd: normal bowel sounds, non tender,soft Extremities: Moves all extremities, no tremor Neuro: A&O x3, Skin: diaphoretic Results & Data Results & Data Vital Signs (Past 12 Hours) Vital Signs Temp Pulse Resp BP Pulse Ox O2 Del Method 12/09/24 07:29 98.1 F 70 18 145/89 H 97 Room Air 12/09/24 04:00 98.2 F 96 H 18 147/88 H 99 Room Air 12/08/24 23:24 98.2 F 86 18 157/87 H 99 Room Air Laboratory Results cbc and chemistry reviewed PG Care Time/CCT Total # of Minutes Spent Total Time Spent with Patient: Total time spent is greater than 50% in coordination of care (as documented) at patient's floor/unit and/or counseling patient: Coding Level of Care Code 13331 SUB INP/OBS CARE 2/35MIN Diagnoses Alcohol use disorder F10.90 Alcohol withdrawal syndrome F10.930 Complication of substance-induced condition: uncomplicated Polysubstance abuse F19.10 Anxiety F41.9 Depression F32.A (2) Alcohol withdrawal syndrome Complication of substance-induced condition: uncomplicated Qualified Code(s): F10.930 - Alcohol use, unspecified with withdrawal, uncomplicated
--- NOTE | 2024-12-09 13:58 | Communication Note ---
Date of Service: December 09, 2024 Notified by nursing that pt's mother called in to report telling her that he "is in a dark place". Patient has not been willing to speak to nursing staff, but said would speak to the hospitalist. I presented to bedside, pt again was sleeping, and did not awaken to verbal stimuli, only tactile stimuli. He reports being frustrated with the lack of medication he is getting, reporting prior times he was given much more Ativan or Valium and was able to sleep. When inquiring about being in a dark place he does not expand more. He denies thoughts of self harm and suicidal thoughts. He states " I have a disease that makes me ruin my life" - we discussed how he is on the Ativan active withdrawal, and how there are not good studies and protocols in place for kratom withdrawal because it is not an FDA approved substance. He was educated on the fact that he will not be sedated to go through this process, we are monitoring his vitals and symptoms frequently and will continue to follow the AWSS protocol. He was offered to speak to the psych liaison multiple times and declined. He also admitted to taking his antidepressant out of his bag this morning, I reassured him his meds would be ordered here and instructed him not to take any other medications from his personal belongings.
[2024-12-09] MEDS: LORazepam 0.5 MG TAB PO STA (19:05)
[2024-12-09] MEDS: ACETAMINOPHEN 325 MG TAB PO PRN (20:26)
[2024-12-09] MEDS: MELATONIN 3 MG TAB PO PRN (20:26)
[2024-12-10] MEDS: LORazepam Inj 1 MG in SYRINGE 0.5 ML IV PRN (04:01)
[2024-12-10 06:48] LABS: Hematocrit (blood only) 38.5 % (42.0-52.0); Hemoglobin 13.9 g/dl (14.0-18.0); Mean Corpuscular Hemoglobin 31.6 pg (25.0-34.0); Mean Corpuscular Volume 87.5 fL (80.0-100.0); Platelet Count 196 K/uL (130-400); RDW Standard Deviation 37.7 fL (36.4-46.3); Red Blood Count 4.40 M/uL (4.70-6.10); White Blood Count 5.86 K/ul (4.8-10.8)
[2024-12-10 06:59] LABS: Alanine Aminotransferase 15.0 U/L (7-52); Albumin Globulin Ratio 1.8 (0.9-2); Albumin Level 4.4 gm/dl (3.4-5.0); Alkaline Phosphatase 54.0 U/L (34-104); Anion Gap 8.0 (3-11); Bilirubin,Total 1.2 mg/dl (0.2-1.0); Blood Urea Nitrogen 12.0 mg/dl (6-23); Calcium 9.1 mg/dl (8.6-10.3); Carbon Dioxide 25.0 mmol/L (21-32); Chloride 103.0 mmol/L (98-107); Creatinine Clr Calc Pharmacy 146.4 ml/min; Globulin 2.4 gm/dl (2.5-4.0); Glucose 104.0 mg/dl (70-99(Fasting)); Potassium 3.5 mmol/L (3.5-5.1); Sodium 136.0 mmol/L (136-145); Total Protein 6.8 gm/dl (6.0-8.3)
--- NOTE | 2024-12-10 12:18 | Hospitalist Progress Note ---
"Date of Service December 10, 2024 Assessment & Plan (1) Alcohol use disorder: (2) Alcohol withdrawal syndrome: (3) Polysubstance abuse: (4) Anxiety: (5) Depression: Plan Inderjit is a 34-year-old male with a past medical history of alcohol use disorder, anxiety and depression who presents to the hospital for elective detox. He had a similar admission in 12/2023 in which she attended rehab afterwards and reports was sober for 5 months. Presents with a alcohol level of 292, 2 days after being kicked out of his house. Also reports concomitant use of kratom in 7hydroxy concentrate. Admitted to undergo withdrawal. #ETOH abuse | Alcohol withdrawal - reports drinking 25 drinks a day (mixed drinks and beer), last drink ~ 2100 12/07. Reports psychosis and LFT elevation with phenobarbital in the past. Given 2L IVFs. Thiamine and Folate qam Seizure precautions Ativan active protocol 1-3mg - does not appear to be going through significant alcohol withdrawal at this time, mostly subjective symptoms, suspect wishes to be sedated just to not think about life as he is feeling rather hopeless telling me he has lost everything today. Discussed this is not an appropriate use of lorazepam but will give a small tapering dose of Librium more to help with his anxiety than withdrawal. If still Hold home gabapentin - has not been taking as prescribed #Polysubstance abuse - with reported kratom 50g day x 6 months & 7- hydroxy concentrate 100mg TID x 2 months recommend cessation Will consider Suboxone tomorrow if still having significant anxiety and abdominal symptoms #Anxiety and depression Denies suicidal and homicidal thoughts on admission Continue venlafaxine VTE Prophyalxis: low risk, encourage ambulation Dispo: continued inpatient stay, actively withdrawing Admission and Anticipated Discharge Date Admission Date: December 08, 2024 Subjective Feeling his life is hopeless and wants to be more sedated with lorazepam. Main concern abdominal cramping. Physical Exam Respiratory: normal respiratory effort, lungs clear to auscultation Cardiovascular: RRR, no murmur, no edema Gastrointestinal (Abdomen): normal bowel sounds, soft, nontender, no hepatosplenomegaly Neurologic: moves all extremities and awake; not confused Speech / Cognition: normal speech Motor/Sensory: no tremor Psychiatric: A+Ox3, euthymic affect Thought Content: + worthlessness Results & Data Results & Data Vital Signs (Past 12 Hours) Vital Signs Temp Pulse Resp BP Pulse Ox O2 Del Method 12/10/24 07:56 37.0 C 83 17 139/89 100 Room Air 12/10/24 03:27 36.7 C 77 14 133/83 100 Room Air PG Care Time/CCT Total # of Minutes Spent Total Time Spent with Patient: Total time spent is greater than 50% in coordination of care (as documented) at patient's floor/unit and/or counseling patient: Coding Level of Care Code 76042 SUB INP/OBS CARE 2/35MIN Diagnoses Alcohol use disorder F10.90 Alcohol withdrawal syndrome F10.930 Complication of substance-induced condition: uncomplicated Polysubstance abuse F19.10 Anxiety F41.9 Depression F32.A (2) Alcohol withdrawal syndrome Complication of substance-induced condition: uncomplicated Qualified Code(s): F10.930 - Alcohol use, unspecified with withdrawal, uncomplicated"
[2024-12-11 00:34] LABS: Appearance Urine Clear (Clear); Glucose Urine UA Negative (Negative)
--- NOTE | 2024-12-11 09:05 | Hospitalist Progress Note ---
"Date of Service December 11, 2024 Assessment & Plan (1) Alcohol use disorder: (2) Alcohol withdrawal syndrome: (3) Polysubstance abuse: (4) Anxiety: (5) Depression: Plan Inderjit is a 34-year-old male with a past medical history of alcohol use disorder, anxiety and depression who presents to the hospital for elective detox. He had a similar admission in 12/2023 in which she attended rehab afterwards and reports was sober for 5 months. Presents with a alcohol level of 292, 2 days after being kicked out of his house. Also reports concomitant use of kratom in 7hydroxy concentrate. Admitted to undergo withdrawal. #ETOH abuse | Alcohol withdrawal - reports drinking 25 drinks a day (mixed drinks and beer), last drink ~ 2100 12/07. Reports psychosis and LFT elevation with phenobarbital in the past. Given 2L IVFs. Thiamine and Folate qam Seizure precautions Doubtful ongoing withdrawal and suspect he is using this more for his ongoing anxiety, will switch lorazepam to just 1mg q6h PRN for anxiety #Polysubstance abuse - with reported kratom 50g day x 6 months & 7- hydroxy concentrate 100mg TID x 2 months recommend cessation No improvement with gabapentin, will start Suboxone and monitor response #Anxiety and depression Denies suicidal and homicidal thoughts on admission Psych liaison to see Continue venlafaxine, add his gabapentin back, he is now report taking this regularly but ran out shortly prior to admission VTE Prophylaxis: low risk, encourage ambulation Dispo: continued inpatient stay, actively withdrawing Admission and Anticipated Discharge Date Admission Date: December 08, 2024 Subjective Ongoing anxiety, no improvement with gabapentin. Insomnia and abdominal cramping still his most concerning symptoms. Physical Exam Respiratory: normal respiratory effort, lungs clear to auscultation normal respiratory effort; no respiratory distress Cardiovascular: RRR, no murmur, no edema Gastrointestinal (Abdomen): normal bowel sounds, soft, nontender, no hepatosplenomegaly Neurologic: moves all extremities and awake; not confused Speech / Cognition: normal speech Motor/Sensory: no tremor Psychiatric: A+Ox3, euthymic affect Results & Data Results & Data Vital Signs (Past 12 Hours) Vital Signs Temp Pulse Pulse Resp BP Pulse Ox O2 Del Method 12/11/24 07:50 37 C 61 18 124/85 99 Room Air 10/04/25 04:37 36.8 C 65 21 143/79 H 100 Room Air 12/11/24 02:15 36.6 C 74 22 148/97 H 100 Room Air 12/10/24 21:44 81 PG Care Time/CCT Total # of Minutes Spent Total Time Spent with Patient: Total time spent is greater than 50% in coordination of care (as documented) at patient's floor/unit and/or counseling patient: Coding Level of Care Code 59139 SUB INP/OBS CARE 2/35MIN Diagnoses Alcohol use disorder F10.90 Alcohol withdrawal syndrome F10.930 Complication of substance-induced condition: uncomplicated Polysubstance abuse F19.10 Anxiety F41.9 Depression F32.A (2) Alcohol withdrawal syndrome Complication of substance-induced condition: uncomplicated Qualified Code(s): F10.930 - Alcohol use, unspecified with withdrawal, uncomplicated"
[2024-12-11] MEDS: GABAPENTIN 600 MG TAB PO SCH (09:12)
[2024-12-11] MEDS: BUPRENORPHINE/NALOXONE 2/0.5MG TAB SL ONE (18:09)
[2024-12-11] MEDS: LORazepam Inj 1 MG in SYRINGE 0.5 ML IV PRN (23:49)
[2024-12-12] MEDS: BUPRENORPHINE/NALOXONE 2/0.5MG TAB SL SCH (08:39)
[2024-12-12] MEDS: LORazepam 1 MG TAB PO PRN ×2 (11:31→17:59)
[2024-12-12] MEDS: BUPRENORPHINE/NALOXONE 2/0.5MG TAB SL STA (13:20)
--- NOTE | 2024-12-12 13:55 | Hospitalist Progress Note ---
"Date of Service December 12, 2024 Assessment & Plan (1) Alcohol use disorder: (2) Alcohol withdrawal syndrome: (3) Polysubstance abuse: (4) Anxiety: (5) Depression: Plan Inderjit is a 34-year-old male with a past medical history of alcohol use disorder, anxiety and depression who presents to the hospital for elective detox. He had a similar admission in 12/2023 in which she attended rehab afterwards and reports was sober for 5 months. Presents with a alcohol level of 292, 2 days after being kicked out of his house. Also reports concomitant use of kratom in 7hydroxy concentrate. Admitted to undergo withdrawal. #ETOH abuse | Alcohol withdrawal - reports drinking 25 drinks a day (mixed drinks and beer), last drink ~ 2100 12/07. Reports psychosis and LFT elevation with phenobarbital in the past. Thiamine and Folate qam Seizure precautions Switch lorazepam to PO q8h PRN for anxiety #Polysubstance abuse - with reported kratom 50g day x 6 months & 7- hydroxy concentrate 100mg TID x 2 months recommend cessation Started Suboxone 4mg yesterday evening and this morning with significant improvement, additional Suboxone 4mg now, likely daily dose 8mg Plan on discharging on tapering dose #Anxiety and depression Denies suicidal and homicidal thoughts on admission Psych liaison to see Continue venlafaxine, continue gabapentin Start Seroquel for ongoing insomnia, he reports previously on this which helped at 100mg dosing VTE Prophylaxis: low risk, encourage ambulation Dispo: stable for downgrade to med/surg, still some optimization to be had with Suboxone and Seroquel, planned discharge tomorrow after he discusses rehab with case management Admission and Anticipated Discharge Date Admission Date: December 08, 2024 Anticipated date of discharge: 12/13/24 Subjective Significant improvement following Suboxone use yesterday although also noticed improvement with gabapentin. Working on getting into rehabilitation with his parents. Physical Exam Respiratory: normal respiratory effort; no respiratory distress Psychiatric: A+Ox3, euthymic affect Results & Data Results & Data Vital Signs (Past 12 Hours) Vital Signs Temp Pulse Pulse Pulse Resp BP Pulse Ox 12/12/24 10:41 36.9 C 65 16 145/91 H 97 12/12/24 07:43 36.6 C 60 18 135/83 100 12/12/24 07:26 58 L 12/12/24 03:18 36.4 C L 64 16 130/81 99 O2 Del Method 12/12/24 10:41 Room Air 12/12/24 07:43 Room Air 12/12/24 07:26 12/12/24 03:18 Room Air PG Care Time/CCT Total # of Minutes Spent Total Time Spent with Patient: Total time spent is greater than 50% in coordination of care (as documented) at patient's floor/unit and/or counseling patient: Coding Level of Care Code 61752 SUB INP/OBS CARE 2/35MIN Diagnoses Alcohol use disorder F10.90 Alcohol withdrawal syndrome F10.930 Complication of substance-induced condition: uncomplicated Polysubstance abuse F19.10 Anxiety F41.9 Depression F32.A (2) Alcohol withdrawal syndrome Complication of substance-induced condition: uncomplicated Qualified Code(s): F10.930 - Alcohol use, unspecified with withdrawal, uncomplicated"
[2024-12-13 08:04] VITALS: BP 118/75; PULSE 70; RESP 16; TEMP 97.7; O2SAT 99
[2024-12-13] MEDS: BUPRENORPHINE/NALOXONE 8/2 MG TAB SL SCH (08:21)
--- NOTE | 2024-12-13 09:53 | Discharge Summary ---
Discharge Summary Date of Service December 13, 2024 Principal Dx & Hospital Course #1 = Principal Diagnosis (1) Alcohol use disorder: (2) Alcohol withdrawal syndrome: (3) Polysubstance abuse: (4) Anxiety: (5) Depression: (6) Opiate withdrawal: Plan Inderjit Jaime is a 34 year old male admitted to [facility] from December 08 - 2024 due to alcohol and opiate withdrawal. He was initially treated for alcohol withdrawal with as needed lorazepam and then Librium taper was initiated due to poorly contorlled symptoms. Given Kratom use and ongoing symptoms he was treated for opiate withdrawal with Suboxone which helped his symptoms significantly more than the benzodiazepines. He continued to have insomnia however and reported prior use of Seroquel which had been helpful therefore he was also restarted on this. Suboxone has been prescribed for 2 weeks - recommend additional dosing with possible taper at acute rehabilitation. Recommend eventual tapering of gabapentin but since this is a assisted medi cation will continue for now and a month prescription was sent to his pharmacy. Notes For Next Care Provider Follow up alcohol use disorder and consider medications for abstinence Follow up opiate withdrawal and consider Suboxone tapering dose after current prescription Patient plans on going to inpatient rehabilitation Medication Changes From Visit Venlafaxine and gabapentin chronic medications re-prescribed Seroquel prescribed for insomnia Suboxone prescribed for opiate withdrawal Thiamine prescribed for alcohol use disorder Admission HPI Per Admitting Provider Patient seen lying in the hospital bed. Reports that he presented to the hospital today for detox. His last drink was last evening. Reports that he drinks about 2025 drinks a day with a combination between beer and hard alcohol. States that he lost his job 2 days ago and was kicked out from his house. He is willing to go to alcohol rehab would want to talk to his parents first. He had a similar hospitalization a year ago and states he did go to rehab and remained sober for about 5 months. He does report having falls at home but unable to recall details of these falls. Reports that he has not done well with stating he gave him psychosis and elevated liver numbers. He also endorses using kratom 50g day x 6 months & 7- hydroxy concentrate 100mg TID x 2 months, which he purchases from the [employer]. He has been taking his gabapentin but states he does not have enough refills so he has been trying to space it out to make it last does report compliance with with his venlafaxine. He denies suicidal thoughts at time of admission ED course: NSS 1 L Zofran 4 mg IV x 1 Thiamine 2000 mg IV x 1 Ativan 1 mg IM x 1 Discharge Exam Constitutional WD/WN, vitals as above Respiratory normal respiratory effort; no respiratory distress Discharge Plan Discharge Items Patient Disposition: Home - Self-Care Reason For Visit: ETOH WITHDRAWAL Discharge Diagnosis: Alcohol and opiate withdrawal Condition on Discharge: Fair Activity: Resume your previous activity Non-emergency contact: Primary Care Provider Call non-emergency contact if: you have any medication questions and your symptoms worsen Follow-up/Referrals: PCP,NO [Primary Care Provider] - Diet: Regular Addtl Attending Provider Instructions: You were admitted to [facility] from December 08 - 2024 due to alcohol and opiate withdrawal. You were treated with a benzodiazepine tapering dose of Librium and as needed lorazepam which you have now finished. You were treated for opiate withdrawal with Suboxone with significant improvement in your symptoms and recommend continuing on this on discharge with eventual taper at rehabilitation. Due to insomnia and previous improvement on Seroquel this was restarted which appears to have been helpful and will continue on discharge. You were restart on venlafaxine and gabapentin for anxiety and lumbar radiculopathy. Recommend longer term considering weaning off gabapentin but ok to continue your usual dose currently which has been prescribed for the next month. Recommend ongoing thiamine use as levels are typically very low in patients who drink alcohol. Recovery is a process, not a single event. The fact you sought help and completed withdrawal treatment shows tremendous strength and courage. Each day from here is an opportunity to rebuild health, stability and self-confidence. You are not alone in this. Stay connected to your support network and reach out whenever you need help. You've already taken one of the hardest steps - keep moving forward. You are still young and have your whole life ahead of you. The decisions you make now can completely change the course of your future. The body and mind have an incredible ability to heal with time, support and consistency. Every sober day you choose is a victory that brings you closer to the life you want. Kind regards, Dr Jorge A Vail Pending Studies at Discharge: No Stand-Alone Forms: My [facility], Smoking Cessation Medications and DC Order Prescriptions: New quetiapine 100 mg Tablet 100 mg PO HS Qty: 30 0RF gabapentin 600 mg Tablet 600 mg PO TID Qty: 90 0RF venlafaxine 37.5 mg Tablet 37.5 mg PO BID Qty: 60 0RF thiamine HCl (vitamin B1) 100 mg tablet 100 mg PO DAILY Qty: 30 0RF buprenorphine-naloxone [Suboxone] 4-1 mg film 2 film sublingual DAILY 14 Days Qty: 28 0RF Rx Instructions: place 1 strip/tab under (each) side of tongue Discontinued gabapentin 600 mg tablet 600 mg PO TID venlafaxine 37.5 mg tablet 37.5 mg PO BID Discharge Orders: Discharge Order (Routine); Ordered 12/13/24 Ordered By: Jorge A Vail Admission Data Admit Date/Time: 12/08/24 12:52 Attending Provider: Jorge A Vail Admit Provider: Jorge A Vail Primary Care Provider: PCP,NO Other Providers: Jorge A Vail Other Interventions: Discharge Summary Assessment (RN) Last Done: 12/13/24 10:41 Hospital Stay Data Consultations 12/08/24 12:21 ED Decision to Admit Stat 12/11/24 10:50 Consult Behavioral Health Liaison Routine Pending Results Patient Have Any Pending Studies at Discharge: No Discharge Instructions Given to Patient (Per Discharging Provider) You were admitted to [facility] from December 08 - 2024 due to alcohol and opiate withdrawal. You were treated with a benzodiazepine tapering dose of Librium and as needed lorazepam which you have now finished. You were treated for opiate withdrawal with Suboxone with significant improvement in your symptoms and recommend continuing on this on discharge with eventual taper at rehabilitation. Due to insomnia and previous improvement on Seroquel this was restarted which appears to have been helpful and will continue on discharge. You were restart on venlafaxine and gabapentin for anxiety and lumbar radiculopathy. Recommend longer term considering weaning off gabapentin but ok to continue your usual dose currently which has been prescribed for the next month. Recommend ongoing thiamine use as levels are typically very low in patients who drink alcohol. Recovery is a process, not a single event. The fact you sought help and completed withdrawal treatment shows tremendous strength and courage. Each day from here is an opportunity to rebuild health, stability and self-confidence. You are not alone in this. Stay connected to your support network and reach out whenever you need help. You've already taken one of the hardest steps - keep moving forward. You are still young and have your whole life ahead of you. The decisions you make now can completely change the course of your future. The body and mind have an incredible ability to heal with time, support and consistency. Every sober day you choose is a victory that brings you closer to the life you want. Kind regards, Dr Jorge A Vail Total Time Total Time Spent Total Time Spent (In Minutes): 50 Total Time Includes: Examination of the Patient, Discharge Planning, Medication Reconciliation and Communication With Other Providers (Multiple outpatient pharmacies to prescribe Suboxone) Coding Level of Care Code 57831 INP/OBS DISCH >30 MIN Diagnoses Alcohol use disorder F10.90 Alcohol withdrawal syndrome F10.930 Complication of substance-induced condition: uncomplicated Polysubstance abuse F19.10 Anxiety F41.9 Depression F32.A Opiate withdrawal F11.93
== END 2024-12-13 11:49 | disposition home or self-care (01) | DRG 897 ==
LOC: ED 05:48 → SUATTDRO 12:52 → 2E 12:52 → 3E 12-12 09:09